=== PATIENT | male | born 1960 | race African-American/Black ===

== ENCOUNTER 2020-01-13 13:28 | Inpatient (IN) ==
--- NOTE | 2020-01-13 16:01 | Diag Imaging Result Doc PS360 ---
EXAM: CHEST-PORTABLE 01/13/2020 HISTORY: chf TECHNIQUE: AP portable at 1540 COMMENT: There is cardiomegaly. There is ill-defined parahilar opacity particularly on the right which is worse than on 12/21/2016. IMPRESSION: Cardiomegaly and pulmonary edema. Electronically signed by Galdino Christian 01/13/2020 3:59 PM
[2020-01-13 17:08] LABS: BASO# 0.05 X1000 (0.0-0.2); BASO% 0.6 % (0.0-0.8); EOS# 0.02 X1000 (0.0-0.7); EOS% 0.3 % (0.0-10.0); HEMATOCRIT 41.4 % (42.0-52.0); HEMOGLOBIN 13.6 g/dL (14.0-18.0); IMM GRAN# 0.03 X1000 (0.0-0.04); IMM GRAN% 0.4 % (0.0-0.5); LYMPH# 1.05 X1000 (1.2-3.4); LYMPH% 13.3 % (20.5-51.1); MCH 32.5 PG (27-31); MCHC 32.9 g/dL (33-37); MCV 98.8 FL (81-99); MONO# 0.87 X1000 (0.11-0.59); MPV 8.9 FL (7.4-10.4); NEUT# 5.88 X1000 (1.4-6.5); NEUT% 74.4 % (42.2-75.2); PLT 296 X1000 (130-400); RBC 4.19 XMIL (4.7-6.1); RDW 13.3 % (11.5-14.5)
[2020-01-13 17:32] LABS: AGAP 12; ALBUMIN 2.4 g/dL (3.5-5.0); ALKALINE PHOSPHATASE 138 U/L (32-122); BUN 22 mg/dL (8-22); CALCIUM 7.5 mg/dL (8.8-10.2); CHLORIDE 97 mmol/L (98-107); COSMO 263; CREATININE 1.4 mg/dL (0.7-1.2); ESTIMATED GFR > 60; GLUCOSE 76 mg/dL (70-104); GOT 52 U/L (10-34); GPT 28 U/L (10-44); POTASSIUM 3.5 mmol/L (3.5-5.1); SODIUM 130 mmol/L (136-145); TCO2 21 mmol/L (25-35); TOTAL BILIRUBIN 0.53 mg/dL (0.20-1.00); TOTAL PROTEIN 4.7 g/dL (6.3-8.3)
[2020-01-13] MEDS: LASIX IV SCH (17:52)
--- NOTE | 2020-01-13 18:16 | HISTORY AND PHYSICAL ---
PRIMARY CARE PROVIDER: Dr. Brissa Lemons. CART PUSHER: Dr. Deven Schwarz. CHIEF COMPLAINT: Transfer from [facility] for continued lower extremity edema and pneumonia. HISTORY OF PRESENT ILLNESS: Mr. Conroy is a 59-year-old -[place] male with a past medical history of systolic congestive heart failure last known EF of 15% in 2018, paroxysmal atrial fibrillation, atrial flutter, coronary artery disease, ischemic cardiomyopathy, chronic anticoagulation, hypotension, chronic hypotension, hyperlipidemia, hepatitis C with cirrhosis of the liver, chronic kidney disease, COPD, nicotine dependence, status post CABG and pacemaker ICD who was transferred over from [facility] with reported uncontrollable lower extremity edema with hypotension and continued bibasilar infiltrate with reported blood pressures 80s and 90s and they were unable to continue to diurese him and secondary to having no ICU he was need to be transferred for a higher level of care with Cardiology consult. All labs and diagnostics have been ordered. PAST MEDICAL HISTORY: Per HPI. Cardiorenal syndrome PAST SURGICAL HISTORY: CABG, pacemaker, ICD. SOCIAL HISTORY: Continued smoker, quit drinking multiple years ago. He is with 2 children. Lives in [place]. FAMILY HISTORY: Significant for heart disease. REVIEW OF SYSTEMS: Twelve-point review of systems completely negative except for those mentioned in HPI. He reports pedal and ankle edema all the time however over the last week and a half he had worsening edema going up into his legs. Currently it is up into his abdomen pitting. Denies any cardiac type chest pain. No more short of breath than his usual. No nausea, vomiting, diarrhea. He did report a cough last week as well nonproductive. MEDICATIONS: Home medications are being compiled. PHYSICAL EXAM: VITAL SIGNS: Temperature is 97.7 degrees, heart rate 94, respirations 24, blood pressure 107/64, O2 is 95% on 2 L nasal cannula. GENERAL: Mr. Conroy is a pleasant 59-year-old male who is sitting up in the bed in the ICU in no acute distress. HEENT: Atraumatic, normocephalic. PERRL. NECK: Supple. Trachea midline. CARDIOVASCULAR: Irregularly irregular. No murmurs, gallops, or rubs noted. JVD present. Significant bilateral lower extremity pitting edema from pedal up into bilateral flanks and abdomen 2 to 3+, positive JVD. ABDOMEN: Somewhat distended, positive bowel, he does have some pitting edema. EXTREMITIES: Patient moves all extremities well. SKIN: Appears to be warm, dry and intact. NEURO: No focal deficits noted. LABORATORY AND DIAGNOSTIC DATA: Pending. 1. Congestive heart failure history last known ejection fraction is 15% in 2018. Will gently diurese him. He has borderline pressures. We will consult Cardiology for their recommendations if they want start a drip. 2. Ischemic cardiomyopathy. 3. Coronary artery disease denying any chest pain. 4. Paroxysmal atrial fibrillation, atrial flutter. 5. Chronic hypotension. 6. Hyperlipidemia. 7. Hepatitis C with cirrhosis of the liver. 8. Cardiorenal syndrome. 9. Chronic kidney disease. 10. Chronic obstructive pulmonary disease. 11. Nicotine dependence. 12. Patient was on hospice back in 2017 but per his report they discharged him because he got better. 13. Hypothyroidism. 14. Further recommendation to follow physician evaluation, laboratory diagnostic and laboratory data. Dictated by NILA Gallegos for Jarrod Hardy MD cc: Brissa Lemons MD Patient transferred here with edema and pneumonia and chronic hypotension. he does have fairly impressive lower extremity edema on exam 2-3+ to the hip. lungs are fairly clear with only mild bibasilar crackles. BP on the low side but pretty stable from where he was on his previous admission. patient also with history of cirrhosis, so I'm not sure how much of his edema is related to CHF vs how much is cirrhosis. terminal manager prognosis is quite poor, but he's fairly stable currently. [facility]
--- NOTE | 2020-01-13 19:22 | Diag Imaging Result Doc PS360 ---
EXAM: CT THORAX/ABD/PELVIS W/O CON 01/13/2020 HISTORY: R/O pna abd pain TECHNIQUE: This exam was performed using automated exposure control, adjustment of mA or kV according to patient size, and/or use of iterative reconstruction technique. COMMENT: Thorax: The current study is compared with the previous examination of 01/13/2020 performed at [facility] at 0627. There are patchy coarse opacities present in the lung bases bilaterally. There are bilateral pleural effusions. This was also the case previously. There is anasarca with edema in the subcutaneous fat. The regional skeleton appears to be intact. ABDOMEN/pelvis: There is lobulation of the liver consistent with cirrhosis. The spleen contains some granulomata and there is decreased attenuation in the inferior spleen similar in appearance to the previous study. This has a CT density of 26 Hounsfield units and measures approximately 3.7 cm in diameter. There are multiple small stones layering dependently in the gallbladder. The kidneys are without evidence of hydronephrosis or mass. There is edema in the anterior pararenal space on the left which may be indicative of pancreatitis. This is somewhat more prominent than on the previous study. There is a fat-containing ventral hernia above the umbilicus. There is fluid throughout the small and large bowel. There is edema in the mesenteric fat. The aorta is not distended. There are atherosclerotic calcifications. There is fluid in the rectum. There is fluid in the inguinal canals particularly the right. The urinary bladder is not distended. The regional skeleton appears to be intact. IMPRESSION: 1. Bronchopneumonia and bilateral pleural effusions. 2. Anasarca. Mild ascites. 3. Cholelithiasis. 4. Distal pancreatitis. 5. Lucent lesion in the spleen which may be due to infarction or hematoma. 6. Enterocolitis. Electronically signed by Galdino Christian 01/13/2020 7:19 PM
[2020-01-13 19:45] LABS: URINE SOURCE CLEAN CATCH
[2020-01-13 19:54] LABS: BILIRUBIN URINE NEGATIVE (NEGATIVE); BLOOD URINE TRACE (NEGATIVE); COLOR YELLOW; GLUCOSE URINE NEGATIVE (NEGATIVE); KETONE URINE NEGATIVE (NEGATIVE); LEUKOCYTES URINE NEGATIVE (NEGATIVE); NITRITE URINE NEGATIVE (NEGATIVE); PROTEIN URINE TRACE mg/dL (NEGATIVE); SP GRAVITY URINE 1.014; TURBIDITY URINE CLEAR (CLEAR); UR EPITHELIAL CELLS <10 /HPF (<10); URINE BACTERIA NEGATIVE /HPF; URINE RBC <10 /HPF (<10); URINE WBC <10 /HPF (<10); UROBILINOGEN URINE NORMAL (NORMAL)
[2020-01-13] MEDS: ZOSYN 3.375 GM in NS 50 ML IV SCH ×2 (20:55→21:40)
[2020-01-13] MEDS: ZYVOX 600 MG/D5W 600 MG/300 ML IVPB IV SCH ×2 (20:56→21:39)
[2020-01-14] MEDS: ZOSYN 3.375 GM in NS 50 ML IV SCH ×4 (01:17→19:39)
[2020-01-14] MEDS: LASIX IV SCH ×2 (04:20→17:54)
[2020-01-14 06:30] LABS: BASO# 0.04 X1000 (0.0-0.2); BASO% 0.6 % (0.0-0.8); EOS# 0.02 X1000 (0.0-0.7); EOS% 0.3 % (0.0-10.0); HEMATOCRIT 37.4 % (42.0-52.0); HEMOGLOBIN 12.5 g/dL (14.0-18.0); IMM GRAN# 0.03 X1000 (0.0-0.04); IMM GRAN% 0.5 % (0.0-0.5); LYMPH# 0.72 X1000 (1.2-3.4); LYMPH% 11.1 % (20.5-51.1); MCH 32.5 PG (27-31); MCHC 33.4 g/dL (33-37); MCV 97.1 FL (81-99); MONO# 0.82 X1000 (0.11-0.59); MONO% 12.7 % (1.7-9.3); NEUT# 4.83 X1000 (1.4-6.5); NEUT% 74.8 % (42.2-75.2); PLT 259 X1000 (130-400); RBC 3.85 XMIL (4.7-6.1); RDW 13.2 % (11.5-14.5); WBC 6.46 X1000 (4.8-10.8)
[2020-01-14 06:59] LABS: AGAP 14; ALB/GLOB RATIO 0.8; ALKALINE PHOSPHATASE 121 U/L (32-122); BUN 20 mg/dL (8-22); CALCIUM 7.5 mg/dL (8.8-10.2); CHLORIDE 102 mmol/L (98-107); COSMO 270; CREATININE 1.2 mg/dL (0.7-1.2); ESTIMATED GFR > 60; GLUCOSE 86 mg/dL (70-104); GOT 42 U/L (10-34); GPT 25 U/L (10-44); POTASSIUM 3.7 mmol/L (3.5-5.1); SODIUM 134 mmol/L (136-145); TCO2 18 mmol/L (25-35); TOTAL BILIRUBIN 0.61 mg/dL (0.20-1.00); TOTAL PROTEIN 4.4 g/dL (6.3-8.3)
--- NOTE | 2020-01-14 07:16 | Diag Imaging Result Doc PS360 ---
EXAM: CHEST-PORTABLE 01/14/2020 HISTORY: chf TECHNIQUE: AP portable at 0537 COMMENT: There is cardiomegaly. Compared to 01/13/2020 there has been slight improvement in the opacity in the right upper lobe otherwise are has been no significant change. IMPRESSION: Cardiomegaly. Mild pulmonary edema. Improved atelectasis versus pneumonia right upper lobe. Electronically signed by Galdino Christian 01/14/2020 7:13 AM
[2020-01-14] MEDS: ZYVOX 600 MG/D5W 600 MG/300 ML IVPB IV SCH ×2 (07:59→19:38)
[2020-01-14] MEDS: NORCO-10 PO PRN (09:40)
[2020-01-14] MEDS: ELIQUIS PO SCH ×2 (10:41→20:14)
[2020-01-14] MEDS: COREG PO SCH ×2 (10:41→20:14)
[2020-01-14] MEDS: LANOXIN PO SCH (10:41)
[2020-01-14] MEDS: ASPIRIN PO SCH (10:41)
--- NOTE | 2020-01-14 14:21 | CARDIOLOGY CONSULTATION ---
DATE: 01/14/2020 HISTORY OF PRESENT ILLNESS: Mr. Conroy is a 59-year-old gentleman with a past medical history of congestive heart failure, ejection fraction of 15%, ischemic cardiomyopathy, on anticoagulation therapy, atrial fibrillation, status post AICD placement, status post CABG, comes with complaints of increasing shortness of breath. His CT scan was done which revealed bilateral pleural effusion and features suggestive of pneumonia as well. Patient has been started on antibiotics. The patient does not complain of any fevers or chills. Has mainly noticed increasing pedal edema with orthopnea. There are no palpitations. There is no syncope. REVIEW OF SYSTEMS: A 14 point review of system was done. GI system: There is no history of nausea, vomiting, diarrhea. There is no history of hematemesis or melena. Central nervous system: No focal weakness to suggest a CVA, TIA. System: There is no dysuria or hematuria. Respiratory System: There is no history of hemoptysis. Endocrine System: Stable. PAST MEDICAL HISTORY: 1. Coronary artery disease, coronary artery bypass grafting. 2. ICD placement. 3. Severe LV dysfunction, ejection fraction of 15%. Ischemic cardiomyopathy. 4. Atrial fibrillation. 5. Anticoagulation therapy. 6. Hepatitis C with cirrhosis of the liver. 7. COPD. 8. Nicotine dependence. SOCIAL HISTORY: Continues to smoke. Quit drinking many years back. He is with 2 children. Lives in [place]. FAMILY HISTORY: Significant for heart disease. ALLERGIES: He is not known to be allergic to any medication. CURRENT MEDICATIONS: Include Eliquis 5 mg p.o. b.i.d., aspirin 81 mg a day, Lipitor 10, Coreg 3.125 mg b.i.d., Lanoxin 0.125 mg a day, Lasix 60 mg IV b.i.d., levothyroxine 50, Zosyn. PHYSICAL EXAMINATION: Vital signs: Blood pressure was 94/67. Neck: Jugular venous pressure was elevated. Examination of the neck revealed no bruit. Cardiovascular: First and second heart sounds were heard. There was S3 gallop. Respiratory system: Bibasilar inspiratory crepitations with dullness on percussion. Abdomen: Soft, nontender. Bowel sounds were heard. Extremities: Examination of his extremities revealed pitting pedal edema. ASSESSMENT AND PLAN: 1. Mr. Chucho Conroy is a 59-year-old gentleman with a history of coronary artery disease, coronary artery bypass grafting, congestive heart failure, chronic systolic, AICD placement, atrial fibrillation, is admitted with orthopnea, pedal edema, is in congestive heart failure. CT scan also revealed features of pneumonia. From a cardiac standpoint, he is on Coreg. We will see how he fares well on Entresto. We will start him on that. 2. He has severe LV dysfunction. We will get an echocardiogram to reassess his cardiac and valvular function. We will also set him up to have dobutamine for inotropy for 48 hours. 3. We will check a BMP on a daily basis. In the past he has had cardiorenal syndrome. However, his BUN today was 20 with a creatinine of 1.2, sodium 134, proBNP elevated at greater than 10,000. 4. For pneumonia, continue with his antibiotic Zosyn as planned. 5. He has an AICD which will be tested and is functioning appropriately. He has atrial fibrillation for which he is on anticoagulation therapy. No bleeding diatheses. I have not made any other changes. Thank you for the consult. cc: Daniel So MD
[2020-01-14] MEDS: DOBUTAMINE 500/D5W 500 MG/250 ML IV.SOLN IV SCH (14:42)
--- NOTE | 2020-01-14 16:33 | PROGRESS NOTE ---
DATE: 01/14/2020 INTERVAL HISTORY: Patient's edema about the same. Remains afebrile. Oxygenation saturations pretty good. Blood pressure remains on the low side but stable overall. REVIEW OF SYSTEMS: Twelve point review of systems negative except as per interval history. LABS: WBC 6.4, hemoglobin 12.5, hematocrit 37.4, platelets 259,000. Sodium 134, potassium 3.7, BUN 20, creatinine 1.2. BNP 8500. IMAGING: Chest x-ray with cardiomegaly, mild pulmonary edema and improving right upper lobe pneumonia. CT chest, abdomen, pelvis from yesterday afternoon showing bronchopneumonia and bilateral pleural effusions as well as mild ascites and lesion in the spleen which is likely infarction versus hematoma. VITALS: T-max 98.1 degrees, pulse 80, respirations 22, blood pressure 80/61, O2 saturation 93% on 2 L by nasal cannula next. PHYSICAL EXAMINATION: General: No acute distress. Vitals as above. HEENT: Normocephalic, atraumatic. Some JVD noted. Cardiovascular: Regular rate and rhythm currently. Pulmonary: Bibasilar rales noted otherwise pretty clear. Abdomen: Soft, nontender, nondistended. Bowel sounds positive. Extremities: Peripheral pulses intact, 2+ lower extremity edema all the way up to the hip. Neurologic: Cranial nerves grossly intact. No focal deficits identified . Psychiatric: Normal mood and affect. Awake, alert, oriented x3. ASSESSMENT AND PLAN: 1. Acute on chronic systolic congestive heart failure last known ejection fraction 15%. Patient's respiratory status pretty good but his swelling is not really significantly improved. He is on current Lasix 60 q.12 and digoxin. Cardiology following and planning on starting dobutamine for a couple days to see if that helps improve his edema. I am not entirely certain how much of his swelling is from heart failure and how much is from his cirrhosis but patient states it came on fairly suddenly other than his feet which stay swollen so may very well be decompensation his heart failure. The patient's Coreg restarted and he is being started on Entresto by Cardiology as well. Will treat his other issues as below and see how he does. 2. Pneumonia. Initial chest x-ray did not really show much but CT was suggestive of some pneumonia so he was started on Zosyn and Zyvox which we will continue for now. Oxygen requirements are pretty minimal so he is doing okay from that standpoint. 3. Paroxysmal atrial fibrillation normal sinus at the time of my exam but will continue Eliquis, Coreg and digoxin. 4. History of hepatitis C and cirrhosis. Likely contributing to his edema. Bilirubin is within normal limits. No sign hepatic encephalopathy. I suspect his cirrhosis is mild to moderate. 5. Chronic obstructive pulmonary disease. No wheezing or significantly decreased air entry to suggest exacerbation. Continue to monitor. 6. Chronic hypotension. Looking back at previous hospitalizations, his blood pressure appears to be pretty much what it has been in the past. Will monitor and adjust as needed. 7. Chronic hyponatremia likely related to heart failure and cirrhosis, stable to slightly improved today. Monitor labs. 8. Chronic kidney disease 3, creatinine stable. Tolerating diuresis so far. 9. Hypothyroidism. Continue home Synthroid. 10. Chronic pain. Continue home [place]. [facility]
--- NOTE | 2020-01-14 17:14 | ECHO REPORT ---
ORDER DATE: 01/13/2020 INTERPRETING PHYSICIAN: Dr. Daniel So. ECHOCARDIOGRAPHIC MEASUREMENTS: 1. Interventricular septum: 0.7 cm. 2. Left ventricular posterior wall: 0.7 cm. 3. Left ventricular diastolic diameter: 7.0 cm. 4. Left atrium: 5.1 cm. 5. Aorta: 3.3 cm. 6. Right ventricle: 5.6 cm. SUMMARY OF THE 2-DIMENSIONAL IMAGIN. Tricuspid valve was normal. 2. Aortic valve leaflets were trileaflet. 3. There is moderate mitral annular calcification. 4. Mitral valve leaflets are normal. 5. Pacing leads are noted in the right chamber. 6. Right ventricle was dilated with reduced right ventricular systolic function. 7. There is severe biatrial enlargement. 8. There is severe eccentric tricuspid regurgitation. 9. Peak velocity across the tricuspid valve was 3.7 meters per second. 10. Pulmonary artery systolic pressure of 66 mmHg. 11. There is mild mitral regurgitation. 12. Atrial fibrillation was noted. 13. Left ventricle is severely dilated with severely reduced systolic function. 14. Estimated ejection fraction 10 to 15%. 15. There is no pericardial effusion or obvious intracardiac mass or thrombus seen. 16. There is mild mitral regurgitation. cc: Daniel So MD
[2020-01-14] MEDS: ZOFRAN IV PRN (20:14)
[2020-01-14] MEDS: ENTRESTO 24 MG-26 MG TABLET PO SCH (20:15)
[2020-01-15] MEDS: ZOSYN 3.375 GM in NS 50 ML IV SCH ×4 (01:38→20:07)
[2020-01-15] MEDS: LASIX IV SCH ×2 (05:49→16:47)
[2020-01-15 06:59] LABS: BASO# 0.02 X1000 (0.0-0.2); BASO% 0.4 % (0.0-0.8); EOS# 0.04 X1000 (0.0-0.7); EOS% 0.8 % (0.0-10.0); HEMATOCRIT 35.9 % (42.0-52.0); HEMOGLOBIN 11.6 g/dL (14.0-18.0); LYMPH# 0.89 X1000 (1.2-3.4); LYMPH% 17.8 % (20.5-51.1); MCHC 32.3 g/dL (33-37); MCV 98.9 FL (81-99); MONO# 0.65 X1000 (0.11-0.59); NEUT# 3.41 X1000 (1.4-6.5); PLT 217 X1000 (130-400); RBC 3.63 XMIL (4.7-6.1); RDW 13.4 % (11.5-14.5); WBC 5.01 X1000 (4.8-10.8)
[2020-01-15 07:04] LABS: AGAP 13; BUN 18 mg/dL (8-22); CALCIUM 7.4 mg/dL (8.8-10.2); CHLORIDE 101 mmol/L (98-107); COSMO 268; CREATININE 1.4 mg/dL (0.7-1.2); ESTIMATED GFR > 60; GLUCOSE 86 mg/dL (70-104); MAGNESIUM 1.5 mg/dL (1.5-2.7); POTASSIUM 3.1 mmol/L (3.5-5.1); SODIUM 133 mmol/L (136-145); TCO2 19 mmol/L (25-35)
[2020-01-15] MEDS: LANOXIN PO SCH ×2 (07:33→08:31)
[2020-01-15] MEDS: COREG PO SCH ×3 (07:33→20:10)
[2020-01-15] MEDS: ENTRESTO 24 MG-26 MG TABLET PO SCH ×3 (07:34→20:10)
[2020-01-15] MEDS: ASPIRIN PO SCH ×2 (07:34→08:30)
[2020-01-15] MEDS: ZYVOX 600 MG/D5W 600 MG/300 ML IVPB IV SCH ×2 (07:34→20:07)
[2020-01-15] MEDS: ELIQUIS PO SCH ×3 (07:34→20:35)
[2020-01-15] MEDS: NORCO-10 PO PRN (07:38)
[2020-01-15] MEDS: LIPITOR PO SCH (08:30)
[2020-01-15] MEDS: SYNTHROID PO SCH (08:31)
[2020-01-15] MEDS ORDERED: KLOR-CON PO ONE (10:23)
[2020-01-15] MEDS ORDERED: ALDACTONE PO ONE (10:32)
--- NOTE | 2020-01-15 10:57 | PROGRESS NOTE ---
DATE: 01/15/2020 SUBJECTIVE: I have seen and examined Mr. Conroy today. Mr. Conroy refers to be doing well. He said his breathing has improved but he remains remarkably edematous, especially in the lower extremities. OBJECTIVE: Vital Signs: Current vitals are blood pressure 93/77, pulse of 77, respirations 20, temperature 97.7 degrees. The patient is saturating 99% on 4 L. General: Mr. Conroy is a 59- year-old gentleman. He is in bed, does not seem to be in any cardiopulmonary distress. HEENT: Mucosa is pink and moist. Anicteric. Acyanotic. Neck: Supple. Positive for JVD. Chest: Air entry is bilaterally reduced. A few crackles in the posterior lung maier. Cardiovascular: Regular rate and rhythm. Abdomen: Soft. It is distended. There is a paraumbilical hernia noted. There is edema on the lateral aspect of the abdominal wall. Extremities: About 4+ pedal edema. SURGICAL ASSISTANT: Patient is awake, alert, oriented. There is no focal deficit. I'S AND O'S: Urine output was 2125. He is currently negative balance of 812. LABORATORY DATA: WBC of 5.01, hemoglobin of 11.6, platelet count of 217,000. Chemistry is also reviewed. Potassium of 3.1. Rest of chemistry is unremarkable. Creatinine is 1.4. IMAGING STUDIES: A chest x-ray yesterday did show cardiomegaly, pulmonary edema, improved atelectasis versus pneumonia in the right upper lobe. CURRENT MEDICATIONS: Have all been reviewed, no changes. ASSESSMENT: 1. Anasarca secondary to congestive heart failure exacerbation. The patient is on diuretic therapy. 2. Advanced systolic heart failure. The patient is on Entresto, Coreg, diuretics, and digoxin. 3. Severe ischemic cardiomyopathy. The patient is status post coronary artery bypass graft and AICD. 4. Biventricular failure. Ejection fraction of 10 to 15 percent of the left ventricle. 5. Cardiogenic shock. The patient continues to be on inotrope (dobutamine). Cardiology is on board. 6. Bilateral multifocal pneumonia. Patient is on Zosyn and Zyvox. Today is day 2 on antimicrobials. 7. Hypokalemia. We will continue to replace. 8. Chronic kidney disease, stage III A to B. In general, I think Mr. Conroy is relatively stable. He remains edematous. He continues to be on loop diuretic. We will add spironolactone to enhance the loop diuretic and also for the poor ejection fraction. cc: Kaveh Lozano MD
[2020-01-15] MEDS: LEVOPHED 8 MG in D5 1/2 NS 250 ML IV SCH ×2 (15:31→23:54)
[2020-01-15] MEDS: ZOFRAN IV PRN (18:14)
[2020-01-16] MEDS: DOBUTAMINE 500/D5W 500 MG/250 ML IV.SOLN IV SCH ×2 (01:13→13:10)
[2020-01-16] MEDS: ZOSYN 3.375 GM in NS 50 ML IV SCH ×2 (03:22→07:44)
[2020-01-16] MEDS: LASIX IV SCH ×2 (05:06→20:30)
[2020-01-16 06:24] LABS: BASO# 0.04 X1000 (0.0-0.2); BASO% 0.5 % (0.0-0.8); EOS# 0.04 X1000 (0.0-0.7); EOS% 0.5 % (0.0-10.0); HEMATOCRIT 42.4 % (42.0-52.0); HEMOGLOBIN 14.1 g/dL (14.0-18.0); IMM GRAN# 0.03 X1000 (0.0-0.04); IMM GRAN% 0.4 % (0.0-0.5); LYMPH# 1.39 X1000 (1.2-3.4); LYMPH% 17.7 % (20.5-51.1); MCH 32.6 PG (27-31); MCHC 33.3 g/dL (33-37); MCV 97.9 FL (81-99); MONO# 1.18 X1000 (0.11-0.59); MONO% 15.1 % (1.7-9.3); MPV 8.8 FL (7.4-10.4); NEUT# 5.16 X1000 (1.4-6.5); NEUT% 65.8 % (42.2-75.2); PLT 278 X1000 (130-400); RBC 4.33 XMIL (4.7-6.1); RDW 13.1 % (11.5-14.5); WBC 7.84 X1000 (4.8-10.8)
[2020-01-16 06:48] LABS: AGAP 11; BUN 15 mg/dL (8-22); CALCIUM 7.6 mg/dL (8.8-10.2); CHLORIDE 96 mmol/L (98-107); COSMO 264; CREATININE 1.2 mg/dL (0.7-1.2); ESTIMATED GFR > 60; GLUCOSE 133 mg/dL (70-104); POTASSIUM 3.7 mmol/L (3.5-5.1); SODIUM 130 mmol/L (136-145); TCO2 23 mmol/L (25-35)
[2020-01-16] MEDS: ZYVOX 600 MG/D5W 600 MG/300 ML IVPB IV SCH ×2 (07:44→19:30)
[2020-01-16] MEDS: SYNTHROID PO SCH (08:10)
[2020-01-16] MEDS: LANOXIN PO SCH (08:10)
[2020-01-16] MEDS: LEVOPHED 8 MG in D5 1/2 NS 250 ML IV SCH ×3 (08:10→21:27)
[2020-01-16] MEDS: LIPITOR PO SCH (08:10)
[2020-01-16] MEDS: ENTRESTO 24 MG-26 MG TABLET PO SCH (08:11)
[2020-01-16] MEDS: ALDACTONE PO SCH (08:11)
[2020-01-16] MEDS: ASPIRIN PO SCH (08:11)
[2020-01-16] MEDS: ELIQUIS PO SCH ×2 (08:11→20:30)
[2020-01-16] MEDS: COREG PO SCH ×2 (08:11→20:30)
[2020-01-16] MEDS ORDERED: LASIX IV SCH (09:00)
[2020-01-16] MEDS: COLCRYS PO SCH (12:16)
[2020-01-16] MEDS: BIDIL PO SCH ×2 (13:10→17:05)
--- NOTE | 2020-01-16 19:20 | PROGRESS NOTE ---
DATE: 01/16/2020 This is a patient of Dr. 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 Deven Schwarz. He was transferred from [facility] to continue treatment for lower extremity edema and pneumonia. This is a 59-year-old male with past medical history of systolic congestive heart failure, known ejection fraction 15% in 2018, paroxysmal atrial fib, atrial flutter, coronary artery disease, ischemic cardiomyopathy, chronic anticoagulation, hypertension, chronic hypertension, hyperlipidemia, hepatitis C with cirrhosis of the liver, chronic kidney disease, COPD, nicotine dependence, status post CABG and pacemaker ICD placement. He was transferred from [facility] with reported uncontrolled lower extremity edema, hypotension and continued bibasilar infiltrate. Reported blood pressures in the 80s to 90s systolic, unable to continue to diurese him so transferred here to our ICU unit. ADMISSION DIAGNOSES: 1. Congestive heart failure. Last known ejection fraction 15% in 2018. The plan was to diurese and cardiology involved. 2. Ischemic cardiomyopathy. 3. Coronary artery disease. No chest pain. No sign of active ischemia at this time. 4. Paroxysmal atrial fibrillation and flutter. 5. Chronic hypertension. 6. Hyperlipidemia. 7. Hepatitis C with cirrhosis of the liver. 8. Cardiorenal syndrome. 9. Chronic kidney disease. 10. Chronic obstructive pulmonary disease. 11. Nicotine dependence. 12. Patient was on hospice back in 2017. Reportedly was discharged because he got better. 13. Hypothyroidism. 14. Continue to encourage good nutrition. OBJECTIVE: Vital signs: Today, afebrile temperature 97 degrees, pulse 80, respirations 18, blood pressure 89/58. HEENT: Pupils are equal and round. Lungs: Clear in all lung maier. Cardiovascular exam: Regular rhythm and rate without murmur or S3. ASSESSMENT AND PLAN: 1. Anasarca secondary to congestive heart failure exacerbation. On exam, his lower extremities did have 3 to 4+ pitting edema. 2. Advanced systolic heart failure. The patient is on Entresto, Coreg, diuretic and digoxin. 3. Severe ischemic cardiomyopathy. Patient is status post coronary artery bypass graft, and an AICD is placed. 4. Biventricular failure. Ejection fraction is 10% to 15% in the left ventricle. 5. Cardiogenic shock. The patient continues to be on inotrope dobutamine. Cardiology is on board. 6. Bilateral multifocal pneumonia. The patient is on Zosyn and Zyvox. This is day #3. 7. Hypokalemia. Continue to replace. Follow his magnesium as well. 8. Chronic kidney disease stage 3A to B. REVIEW OF HIS ORDERS: The patient is on Eliquis 5 mg b.i.d., aspirin 81 mg a day, Lipitor 10 mg a day, Coreg 3.125 mg b.i.d., Colcrys 0.6 mg daily, Lanoxin 125 mcg p.o. daily, dobutamine IV. He has 500 mg in 250 mL and set rate is 3 mcg/kg per minute, Lasix 40 mg IV twice a day, hydrocodone 10 mg p.o. t.i.d. p.r.n. pain, isosorbide dinitrate, hydralazine combination 1 t.i.d., and Synthroid 50 mcg daily, Aldactone 25 mg a day, linezolid 600 mg IV q.12, spironolactone 12.5 mg they gave 1 time on the night. LABORATORY DATA: Today, white count 7840, hematocrit 42, platelet count is 278,000, sodium 130, potassium 3.7, chloride 96, BUN 15, creatinine 1.2. Yesterday, creatinine was 1.4. cc: Jamarcus Robbins MD
[2020-01-17] MEDS: LEVOPHED 8 MG in D5 1/2 NS 250 ML IV SCH ×4 (03:49→21:12)
[2020-01-17 05:52] LABS: BASO# 0.02 X1000 (0.0-0.2); BASO% 0.3 % (0.0-0.8); EOS# 0.05 X1000 (0.0-0.7); EOS% 0.7 % (0.0-10.0); HEMATOCRIT 39.5 % (42.0-52.0); HEMOGLOBIN 12.9 g/dL (14.0-18.0); IMM GRAN# 0.02 X1000 (0.0-0.04); IMM GRAN% 0.3 % (0.0-0.5); LYMPH# 1.52 X1000 (1.2-3.4); LYMPH% 21.8 % (20.5-51.1); MCH 31.9 PG (27-31); MCHC 32.7 g/dL (33-37); MCV 97.8 FL (81-99); MONO# 0.99 X1000 (0.11-0.59); MONO% 14.2 % (1.7-9.3); MPV 8.8 FL (7.4-10.4); NEUT# 4.36 X1000 (1.4-6.5); NEUT% 62.7 % (42.2-75.2); PLT 262 X1000 (130-400); RBC 4.04 XMIL (4.7-6.1); RDW 13.1 % (11.5-14.5); WBC 6.96 X1000 (4.8-10.8)
[2020-01-17 06:28] LABS: AGAP 11; BUN 15 mg/dL (8-22); CALCIUM 7.3 mg/dL (8.8-10.2); CHLORIDE 99 mmol/L (98-107); COSMO 271; CREATININE 1.1 mg/dL (0.7-1.2); ESTIMATED GFR > 60; GLUCOSE 136 mg/dL (70-104); POTASSIUM 3.5 mmol/L (3.5-5.1); SODIUM 134 mmol/L (136-145); TCO2 24 mmol/L (25-35)
--- NOTE | 2020-01-17 07:17 | Diag Imaging Result Doc PS360 ---
EXAM: CHEST-1 VIEW HISTORY: chf TECHNIQUE: Single view COMPARISON: 01/14/2020 FINDINGS: The lungs are well expanded. Cardiomegaly remains. There are sternal wires and a left-sided pacemaker. Mild central vascular prominence. Perihilar infiltrates which are slightly more pronounced. Tiny effusions. IMPRESSION: Mild interval worsening Electronically signed by Satnam Hardwick 01/17/2020 7:14 AM
[2020-01-17] MEDS: ALDACTONE PO SCH (08:32)
[2020-01-17] MEDS: ZYVOX 600 MG/D5W 600 MG/300 ML IVPB IV SCH ×2 (08:32→19:22)
[2020-01-17] MEDS: COLCRYS PO SCH (08:32)
[2020-01-17] MEDS: LASIX IV SCH ×2 (08:32→20:05)
[2020-01-17] MEDS: ASPIRIN PO SCH (08:32)
[2020-01-17] MEDS: ELIQUIS PO SCH ×2 (08:32→20:05)
[2020-01-17] MEDS: LANOXIN PO SCH (08:32)
[2020-01-17] MEDS: LIPITOR PO SCH (08:32)
[2020-01-17] MEDS: SYNTHROID PO SCH (08:32)
[2020-01-17] MEDS: BIDIL PO SCH ×3 (08:32→17:06)
[2020-01-17] MEDS: COREG PO SCH ×2 (08:32→20:05)
--- NOTE | 2020-01-17 15:21 | PROGRESS NOTE ---
DATE: 01/17/2020 SUBJECTIVE: Mr. Conroy had a little more trouble breathing, a little more chest pressure this morning. Blood pressure is hovering between 79 and 96 systolic. OBJECTIVE: Vital Signs: Temperature is 97.8 degrees, pulse 87, respirations 17, blood pressure 79/47. HEENT: Pupils are equal. Lungs: Clear in all lung maier. Cardiovascular: Anterolateral cardiovascular regular rate without murmur or S3. Urine output is 800 mL. DIAGNOSTIC DATA: Chest x-ray from this morning mild interval worsening. Lungs are well expanded. Cardiomegaly remains. There are sternal wires and left-sided pacemaker, mild central vascular prominence. Perihilar infiltrates which are sightly more pronounced. ASSESSMENT AND PLAN: 1. Anasarca secondary congestive heart failure exacerbation. His pitting edema seems to be less. He is diuresing a little bit. Radiographically, no improvement. 2. Advanced systolic heart failure. He is on Entresto, Coreg, diuretic, and digoxin. 3. Severe ischemic cardiomyopathy. The patient is status post coronary bypass graft and AICD has been placed. 4. Biventricular failure. Ejection fraction left ventricle is 10 to 15 percent. 5. Cardiogenic shock. Continue inotrope dobutamine. Cardiology following. Continue trying to diurese. 6. Bilateral multifocal pneumonia. He is on Zosyn and Zyvox. I think predominantly this is pulmonary venous hypertension as his problem. 7. Hypokalemia. Continue to replace as necessary. 8. Chronic kidney disease stage 3A. REVIEW OF HIS ORDERS: He is on Eliquis 5 mg b.i.d. aspirin 81 mg a day, Lipitor 10 mg a day, Coreg 3.125 mg b.i.d., Colcrys 0.6 mg a day, digoxin 125 mcg p.o. daily, dobutamine. He is getting dobutamine drip, Lasix 40 mg IV b.i.d., hydrocodone 10 mg p.o. t.i.d., isosorbide dinitrate and hydralazine takes 1 tablet t.i.d. and Synthroid 50 mcg p.o. daily, spironolactone 25 mg a day and he is on linezolid 600 mg IV. cc: Jamarcus Robbins MD
[2020-01-18] MEDS: DOBUTAMINE 500/D5W 500 MG/250 ML IV.SOLN IV SCH (02:05)
[2020-01-18] MEDS: LEVOPHED 8 MG in D5 1/2 NS 250 ML IV SCH ×4 (02:37→23:53)
--- NOTE | 2020-01-18 08:02 | EKG Report ---
Test Performed on : 01/17/2020 10:12:42 AM Test Reason : NO EKG ORDER FOR MUSE Blood Pressure : / mmHG Vent. Rate : 084 BPM Atrial Rate : 102 BPM P-R Int : 000 ms QRS Dur : 092 ms QT Int : 400 ms P-R-T Axes : 000 085 -53 degrees QTc Int : 472 ms Atrial fibrillation. with frequent ventricular-paced complexes and with premature ventricular or aber rantly conducted complexes. Minimal voltage criteria for LVH, may be normal variant Nonspecific ST and T wave abnormality Prolonged QT Abnormal ECG When compared with ECG of 15-DEC-2016 12:36, Electronic ventricular pacemaker has replaced Sinus rhythm. Vent. rate has decreased BY 43 BPM Confirmed by Abhishek Crum MD ([id number]) on 01/18/2020 9:18:15 PM
[2020-01-18] MEDS: LANOXIN PO SCH (08:14)
[2020-01-18] MEDS: COLCRYS PO SCH ×2 (08:14→20:00)
[2020-01-18] MEDS: ZYVOX 600 MG/D5W 600 MG/300 ML IVPB IV SCH ×2 (08:14→19:31)
[2020-01-18] MEDS: ALDACTONE PO SCH (08:14)
[2020-01-18] MEDS: LASIX IV SCH (08:14)
[2020-01-18] MEDS: LIPITOR PO SCH (08:14)
[2020-01-18] MEDS: ELIQUIS PO SCH ×2 (08:15→20:01)
[2020-01-18] MEDS: ASPIRIN PO SCH (08:15)
[2020-01-18] MEDS: SYNTHROID PO SCH (08:15)
[2020-01-18] MEDS: COREG PO SCH ×2 (08:15→20:01)
[2020-01-18] MEDS: BIDIL PO SCH ×2 (08:16→20:00)
[2020-01-18] MEDS: NORCO-10 PO PRN ×2 (09:02→15:19)
[2020-01-18] MEDS ORDERED: NON-FORMULARY BULK MED TOP PRN (09:45)
[2020-01-18] MEDS ORDERED: MISC. PHARMACY COMMUNICATION SCH (09:45)
--- NOTE | 2020-01-18 10:28 | PROGRESS NOTE ---
DATE: 01/18/2020 SUBJECTIVE: Mr. Conroy is breathing better, a little more comfortable. Apparently, when he was standing up, he felt a strain on his right knee. The aide kept him from falling, but he has pain over the right patella, right kneecap today and that is his main complaint. OBJECTIVE: Vital signs: Temperature 97.1 degrees, remains afebrile, pulse 104, respirations 20, blood pressure 106/70. HEENT: Pupils are equal and round. Lungs: Clear in all lung maier. Cardiovascular: Regular rate without murmur or S3. URINE OUTPUT: 3500 mL. ASSESSMENT AND PLAN: 1. Anasarca secondary to congestive heart failure exacerbation. His pitting edema seems to be less and we are diuresing slowly. 2. Advanced systolic heart failure. He is on Entresto, Coreg, diuretic and digoxin. 3. Severe ischemic cardiomyopathy, status post coronary artery bypass graft. AICD has been placed. 4. Biventricular failure. Ejection fraction of left ventricle estimated to be 10 to 15 percent. 5. Cardiogenic shock when he came. He is on dobutamine drip. 6. Bilateral multifocal pneumonia on Zosyn and Zyvox. Pneumonia seems to be improving. 7. Hypokalemia. We will supplement and replace as necessary. 8. Chronic kidney disease stage IIIA. 9. Irritation in his knee cap. We will see if we can find some topical patches that will help. I am going to check a uric acid level and he is already on colchicine. I may go up on the colchicine to 0.6 mg p.o. twice a day. cc: Jamarcus Robbins MD
[2020-01-18] MEDS: PRIMACOR 20 MG/D5W 100 ML 20 MG/100 ML IVPB IV SCH ×2 (11:36→21:36)
[2020-01-19] MEDS: NORCO-10 PO PRN ×2 (04:32→18:33)
[2020-01-19 06:07] LABS: AGAP 11; BUN 8 mg/dL (8-22); CALCIUM 7.6 mg/dL (8.8-10.2); CHLORIDE 99 mmol/L (98-107); COSMO 271; CREATININE 0.8 mg/dL (0.7-1.2); ESTIMATED GFR > 60; GLUCOSE 117 mg/dL (70-104); MAGNESIUM 1.4 mg/dL (1.5-2.7); POTASSIUM 3.4 mmol/L (3.5-5.1); SODIUM 136 mmol/L (136-145); TCO2 26 mmol/L (25-35); URIC ACID 7.1 mg/dL (3.4-7.0)
[2020-01-19] MEDS: PRIMACOR 20 MG/D5W 100 ML 20 MG/100 ML IVPB IV SCH ×2 (08:17→19:47)
[2020-01-19] MEDS: ZYVOX 600 MG/D5W 600 MG/300 ML IVPB IV SCH ×2 (08:17→19:48)
[2020-01-19] MEDS: SYNTHROID PO SCH (08:29)
[2020-01-19] MEDS: ASPIRIN PO SCH (08:29)
[2020-01-19] MEDS: COLCRYS PO SCH ×2 (08:29→21:45)
[2020-01-19] MEDS: COREG PO SCH ×2 (08:29→21:45)
[2020-01-19] MEDS: LIPITOR PO SCH (08:29)
[2020-01-19] MEDS: LANOXIN PO SCH (08:29)
[2020-01-19] MEDS: ELIQUIS PO SCH ×2 (08:29→21:46)
[2020-01-19] MEDS: ALDACTONE PO SCH (08:30)
[2020-01-19] MEDS: LASIX PO SCH (08:30)
[2020-01-19] MEDS: BIDIL PO SCH ×2 (08:30→22:47)
[2020-01-19] MEDS: MORPHINE IV PRN (12:36)
[2020-01-19] MEDS: SOLU-MEDROL IV SCH ×2 (12:37→19:48)
[2020-01-19] MEDS: LEVOPHED 8 MG in D5 1/2 NS 250 ML IV SCH (13:48)
--- NOTE | 2020-01-19 14:34 | Diag Imaging Result Doc PS360 ---
EXAM: KNEE 1-2 VIEWS-RIGHT 01/19/2020 HISTORY: painful swelling R knee. TECHNIQUE: Right knee three COMMENT: There is no evidence of fracture or dislocation. There is an effusion in the suprapatellar bursa. There is generalized subcutaneous edema. IMPRESSION: Edema and effusion. No acute bony abnormality. Electronically signed by Galdino Christian 01/19/2020 2:31 PM
--- NOTE | 2020-01-19 14:57 | PROGRESS NOTE ---
DATE: 01/19/2020 SUBJECTIVE: Mr. Conroy is breathing better. His right knee is what is giving him a lot of pain. I think I may try some Solu-Medrol. I did go up on his colchicine. I think he strained that right knee, but he does have a history of gout, and there is some general inflammation on that knee. Remains afebrile. OBJECTIVE: Vital Signs: Temperature 98.1 degrees, pulse 88, respirations 19, blood pressure 118/63. HEENT: Pupils are equal and round. Lungs: Clear in all lung maier. Cardiovascular: Regular rhythm and rate without murmur or S3. Abdomen: Soft. Skin: Warm and dry. Urine output is 2600 mL. ASSESSMENT AND PLAN: 1. Anasarca secondary to congestive heart failure exacerbation. The edema seems to be diminishing. He has continued to diurese. He has hypotension which makes it difficult. He is on Entresto, Coreg, diuretic and digoxin. He has severe ischemic cardiomyopathy, status post coronary artery bypass grafting. He has an AICD placed. He has biventricular failure, ejection fraction estimated to be 10% to 15% in the left ventricle. Cardiogenic shock when he presented. He was on dobutamine and now I think his dobutamine has been stopped and he is on norepinephrine. 2. Hypothyroidism. He continues Synthroid supplement. 3. Hypercholesterolemia, aware. 4. His right knee is very tender, so I will probably would get an x-ray of that right knee tomorrow. We will get another chest x-ray as well and just make sure there is no patella injury. cc: Jamarcus Robbins MD
[2020-01-20] MEDS: SOLU-MEDROL IV SCH ×2 (04:27→17:18)
[2020-01-20] MEDS: MORPHINE IV PRN (05:28)
[2020-01-20 06:29] LABS: EOS# 0.17 X1000 (0.0-0.7); EOS% 4.2 % (0.0-10.0); HEMATOCRIT 32.9 % (42.0-52.0); HEMOGLOBIN 10.9 g/dL (14.0-18.0); LYMPH# 0.48 X1000 (1.2-3.4); LYMPH% 11.7 % (20.5-51.1); MCH 32.2 PG (27-31); MCHC 33.1 g/dL (33-37); MCV 97.3 FL (81-99); MONO# 0.11 X1000 (0.11-0.59); MONO% 2.7 % (1.7-9.3); NEUT# 3.33 X1000 (1.4-6.5); NEUT% 81.4 % (42.2-75.2); PLT 128 X1000 (130-400); RBC 3.38 XMIL (4.7-6.1); RDW 12.8 % (11.5-14.5); WBC 4.09 X1000 (4.8-10.8)
[2020-01-20] MEDS: PRIMACOR 20 MG/D5W 100 ML 20 MG/100 ML IVPB IV SCH ×2 (06:45→18:07)
[2020-01-20 07:00] LABS: AGAP 11; ALB/GLOB RATIO 0.7; ALBUMIN 2.3 g/dL (3.5-5.0); ALKALINE PHOSPHATASE 183 U/L (32-122); BUN 15 mg/dL (8-22); CALCIUM 8.3 mg/dL (8.8-10.2); CHLORIDE 96 mmol/L (98-107); COSMO 266; CREATININE 1.2 mg/dL (0.7-1.2); ESTIMATED GFR > 60; GLUCOSE 139 mg/dL (70-104); GOT 33 U/L (10-34); GPT 23 U/L (10-44); MAGNESIUM 1.5 mg/dL (1.5-2.7); POTASSIUM 3.7 mmol/L (3.5-5.1); SODIUM 131 mmol/L (136-145); TCO2 24 mmol/L (25-35); TOTAL BILIRUBIN 1.04 mg/dL (0.20-1.00); TOTAL PROTEIN 5.6 g/dL (6.3-8.3)
[2020-01-20] MEDS: COLCRYS PO SCH ×2 (08:30→20:01)
[2020-01-20] MEDS: ZYVOX 600 MG/D5W 600 MG/300 ML IVPB IV SCH (08:30)
[2020-01-20] MEDS: LASIX PO SCH (08:30)
[2020-01-20] MEDS: LIPITOR PO SCH (08:31)
[2020-01-20] MEDS: SYNTHROID PO SCH (08:31)
[2020-01-20] MEDS: LANOXIN PO SCH (08:31)
[2020-01-20] MEDS: ASPIRIN PO SCH (08:31)
[2020-01-20] MEDS: COREG PO SCH ×2 (08:31→20:01)
[2020-01-20] MEDS: ELIQUIS PO SCH ×2 (08:32→20:01)
[2020-01-20] MEDS: ALDACTONE PO SCH ×2 (08:32→21:40)
[2020-01-20] MEDS: BIDIL PO SCH ×2 (08:46→20:01)
--- NOTE | 2020-01-20 09:13 | Diag Imaging Result Doc PS360 ---
EXAM: CHEST-PORTABLE INDICATION: chf TECHNIQUE: One view COMPARISON: 01/17/2020 FINDINGS: Interstitial thickening most compatible with pulmonary edema is stable to marginally improved. No new consolidation is appreciated. There is stable cardiomegaly. IMPRESSION: Stable to marginal improvement of pulmonary edema. Electronically signed by Salty Moncada 01/20/2020 9:11 AM
--- NOTE | 2020-01-20 09:56 | PROGRESS NOTE ---
DATE: 01/20/2020 SUBJECTIVE: Mr. Conroy's knee is feeling much better. His breathing is comfortable. OBJECTIVE: Vital Signs: Temperature 97.8 degrees, pulse 109, respirations 20, blood pressure has been 86 to mid 90s systolic. Lungs: Clear anterolateral. Cardiovascular exam: Regular rhythm and rate. I do not appreciate a murmur or S3. He does have distended neck veins, both sides. Abdomen: Soft. Extremities: He has 2+ to 3+ pitting edema still from ankle to mid yuen. His right knee is less inflamed. LABORATORY DATA: Looking at his lab from today, white count 4090, hematocrit is 32, hemoglobin is 10, platelet count 128,000. Sodium 139, potassium 3.7, chloride 96. BUN is 15, creatinine 1.2. IMAGING STUDIES: Chest x-ray: Stable to marginal improvement of pulmonary edema. ASSESSMENT AND PLAN: 1. Anasarca secondary to congestive heart failure exacerbation. Edema seems to be slowly diminishing. He is on norepinephrine. He has an automatic implantable cardioverter defibrillator placement. He has biventricular systolic dysfunction, but his left ventricular ejection fraction has been estimated to 10 to 15 percent, so continue to try and diurese. He is on Entresto, Coreg, diuretic and digoxin. 2. Hypothyroidism. Appears to be euthyroid. He is to continue thyroid supplement. 3. Hypercholesterolemia. Aware. 4. Right knee was very tender, and he does have a history of gout, so I put him on some Solu- Medrol. He said he has gotten quite a bit of relief. REVIEW OF HIS ORDERS: He is on Eliquis 5 mg twice a day, aspirin 81 mg a day, Lipitor 10 mg a day, Coreg 3.125 mg b.i.d., colchicine 0.6 mg b.i.d., digoxin 125 mcg daily, Lasix 40 mg a day, hydrocodone 10 mg p.o. t.i.d. p.r.n., isosorbide, hydralazine 1 twice a day, Synthroid 50 mcg daily, methylprednisone 40 mg IV q. 8 hours. I will cut that down to 20 mg IV maybe q. 12 hours. He is getting Milrinone at 20 mg in 100 mL on a drip. He is on spironolactone 25 mg a day, and getting linezolid 600 mg IV q. 12 hours. I think we can probably stop the linezolid. Blood cultures have been negative. cc: Jamarcus Robbins MD
[2020-01-20] MEDS ORDERED: MAGNESIUM SULFATE 4 GM/S.W.I. 4 GM/100 ML IVPB IV ONE (11:52)
[2020-01-20] MEDS ORDERED: ALBUMIN 25% IV ONE (12:23)
[2020-01-20] MEDS: LASIX IV SCH (13:54)
[2020-01-20] MEDS: NORCO-10 PO PRN (19:55)
[2020-01-21] MEDS: LEVOPHED 8 MG in D5 1/2 NS 250 ML IV SCH ×2 (05:31→21:46)
[2020-01-21] MEDS: SOLU-MEDROL IV SCH ×2 (05:32→17:02)
[2020-01-21] MEDS: PRIMACOR 20 MG/D5W 100 ML 20 MG/100 ML IVPB IV SCH ×2 (05:32→17:02)
--- NOTE | 2020-01-21 07:50 | CARDIOLOGY PROGRESS NOTE ---
DATE: 01/20/2020 CHIEF COMPLAINT: Shortness of breath, swelling. SUBJECTIVE: Mr. Conroy remains swollen, lower extremities. Still has some pain in the right knee presumably related to gout. OBJECTIVE: Vital signs: Temperature 97.8 degrees, pulse 109, respirations 23, blood pressure 86/52. General: Awake, chronically ill, in no distress. HEENT: Unremarkable. Prominent jugular veins. Chest: Diminished breath sounds at bases. Heart: Sounds are regular, rhythmic, with gallop. Abdomen: Distended, question of ascites. Extremities: Showed 2-3+ edema. Neurologic exam: Follows commands, moves all 4 extremities. BLOOD WORK: Sodium 131, potassium 3.7, BUN 15, creatinine 1.2. IMPRESSION: 1. Patient who presented with congestive heart failure, this is systolic, chronic. Ischemic cardiomyopathy is the underlying condition. 2. Atrial fibrillation. 3. Cirrhosis of the liver. 4. Chronic obstructive pulmonary disease. 5. Gout. RECOMMENDATIONS: We will make spironolactone 50 mg twice a day because of the diagnosis of cirrhosis. We will replace magnesium. We will continue with a diuretic program. He probably needs to be on Lasix IV rather than p.o, the p.o. is not going to be effective. We will see how he does. cc: Royal Slaughter MD
[2020-01-21] MEDS: NORCO-10 PO PRN (08:46)
[2020-01-21] MEDS: COLCRYS PO SCH ×2 (08:48→20:13)
[2020-01-21] MEDS: LIPITOR PO SCH (08:48)
[2020-01-21] MEDS: ALDACTONE PO SCH ×2 (08:49→20:13)
[2020-01-21] MEDS: LANOXIN PO SCH (08:50)
[2020-01-21] MEDS: ELIQUIS PO SCH ×2 (08:51→20:14)
[2020-01-21] MEDS: ASPIRIN PO SCH (08:51)
[2020-01-21] MEDS: SYNTHROID PO SCH (08:52)
[2020-01-21] MEDS: COREG PO SCH ×2 (08:52→20:14)
[2020-01-21] MEDS: BIDIL PO SCH ×2 (09:03→20:13)
[2020-01-21] MEDS ORDERED: MAGNESIUM SULFATE 4 GM/S.W.I. 4 GM/100 ML IVPB IV ONE (10:28)
--- NOTE | 2020-01-21 10:41 | CARDIOLOGY PROGRESS NOTE ---
DATE: 01/21/2020 CHIEF COMPLAINT: Shortness of breath, weakness, hypotension. SUBJECTIVE: Mr. Conroy feels better. Breathing is more comfortable. He is not having any more pain in the right knee. It is still somewhat swollen. OBJECTIVE: Blood pressure is 109/60, temperature 97.7, pulse 94, respirations 20. He is awake, alert, follows commands. HEENT: Jugular veins are distended. Chest: Sounds relatively clear to auscultation and percussion. Heart sounds are regular and rhythmic. I do not hear gallop or murmur. His abdomen is obese, distended. Extremities showed swelling of the right knee, tenderness. Overall, edema seems to be a little less. Neurologic: Follows commands, moves all 4 extremities. DIAGNOSTIC DATA: Blood work shows sodium 131, potassium 3.7, BUN is 15, creatinine 1.2. Hemoglobin 10.9, white cell count 4090. IMPRESSION: 1. The patient presented with episode of exacerbation of congestive heart failure. This is ischemic cardiomyopathy, prior coronary bypass surgery, advanced, functional class 4 [place] [employer]. 2. Atrial fibrillation. 3. Chronic obstructive pulmonary disease. 4. Gout. 5. Cirrhosis of the liver. RECOMMENDATIONS: At this time, we will continue with present medical therapy. I have instructed the nurses to just cut down the dosage of BiDil to just half of the current dose. We are giving Lasix IV plus albumin to ensure adequate diuresis. We will give him some extra magnesium today. Further advice will be forthcoming. Thank you for asking us to participate in his care. cc: Royal Slaughter MD
[2020-01-21] MEDS: LASIX IV SCH (11:29)
[2020-01-21] MEDS ORDERED: ALBUMIN 25% IV ONE (12:15)
--- NOTE | 2020-01-21 15:45 | PROGRESS NOTE ---
DATE: 01/21/2020 SUBJECTIVE: Mr. Conroy is feeling much better. His knee is feeling better. He thinks his legs are less swollen, but it has been very slow. Breathing he says is kind of off and, but breathing comfortably at the present time. OBJECTIVE: Vital Signs: He remains afebrile, temperature 98 degrees, pulse 100, respirations 19, blood pressure 96/65. HEENT: Pupils are equal and round. Lungs: Clear in all lung maier. Cardiovascular: Regular rate without murmur or S3. Abdomen: Soft. Skin: Warm and dry. Urine output is 1600 mL. ASSESSMENT AND PLAN: 1. The patient with an episode of exacerbation of congestive heart failure, ischemic cardiomyopathy, prior coronary bypass surgery. He is a functional class 4 [place] [employer]. Ejection fraction estimated 10% to 15%. Biventricular failure, and slow to diuresis because of his hypotension. 2. Atrial fibrillation rate is controlled. 3. Chronic obstructive pulmonary disease. 4. Gout. 5. Cirrhosis of the liver. 6. Continue current attempts at therapy an inotropic agent. He is on Eliquis 5 mg twice a day, aspirin 81 mg a day, Lipitor 10 mg a day, Coreg 3.125 mg b.i.d., colchicine 0.6 mg b.i.d., digoxin 125 mcg a day, Lasix 80 mg IV daily, and he is getting milrinone IV, spironolactone 50 mg p.o. b.i.d. We are giving him some albumin before we give the Lasix. He is on methylprednisone 20 mg IV q.12 hours, Synthroid 50 mcg daily, norepinephrine drip. cc: Jamarcus Robbins MD
[2020-01-21] MEDS: ZOFRAN IV PRN (16:18)
[2020-01-21] MEDS: MORPHINE IV PRN (20:15)
[2020-01-22] MEDS: PRIMACOR 20 MG/D5W 100 ML 20 MG/100 ML IVPB IV SCH ×2 (05:46→16:40)
[2020-01-22] MEDS: SOLU-MEDROL IV SCH ×2 (05:46→16:43)
[2020-01-22] MEDS: SYNTHROID PO SCH (09:50)
[2020-01-22] MEDS: ASPIRIN PO SCH (09:50)
[2020-01-22] MEDS: LANOXIN PO SCH (09:58)
[2020-01-22] MEDS: LIPITOR PO SCH (09:59)
[2020-01-22] MEDS: ALDACTONE PO SCH ×2 (09:59→21:18)
[2020-01-22] MEDS: COLCRYS PO SCH ×2 (10:00→21:18)
[2020-01-22] MEDS: ELIQUIS PO SCH ×2 (10:00→21:18)
[2020-01-22] MEDS: COREG PO SCH ×2 (10:00→21:18)
[2020-01-22] MEDS: BIDIL PO SCH ×2 (10:20→23:35)
--- NOTE | 2020-01-22 11:16 | PROGRESS NOTE ---
DATE: 01/22/2020 SUBJECTIVE: Mr. Conroy is better. His breathing is a little bit better. He has very slow diuresis. OBJECTIVE: Remains afebrile, temperature 98.1 degrees, pulse 118, respirations 20, blood pressure 93/61. Pupils are equal and round. Lungs are clear in all lung maier cardiovascular regular rate without murmur or S3. Abdomen: Soft, nondistended. He has 2+ pitting edema from ankle all the way up to his thighs. Urine output was 1,700 mL. ASSESSMENT AND PLAN: 1. Exacerbation of congestive heart failure, ischemic cardiomyopathy, prior coronary artery bypass. He has a functional class 4 [place] [employer]. Ejection fraction estimated 10 to 15 percent. Biventricular failure, very slow diuresis continue present regimen, trying to maximize afterload and diurese. He is on norepinephrine. 2. Atrial fibrillation. Rate is controlled. 3. Chronic obstructive pulmonary disease. 4. Gout. 5. Cirrhosis of the liver. Aware. 6. His right knee had some inflammation in the anterior around his patella and it is better. He does have a history of gout. He is on colchicine. I put him on some Solu-Medrol I will diminish his Solu-Medrol. REVIEW OF HIS ORDERS: He is on Eliquis 5 mg b.i.d., aspirin 81 mg a day, Lipitor 10 mg a day, Coreg 3.125 mg b.i.d., colchicine 0.6 mg p.o. b.i.d., digoxin 125 mcg p.o. daily, Lasix 80 mg IV q.24 hours, hydrocodone he is getting 10 mg t.i.d. p.r.n. methylprednisone is down to 20 mg IV q.12. He is on Milrinone and drip and he is on Synthroid 50 mcg daily and spironolactone 50 mg p.o. b.i.d., norepinephrine drip. LABORATORY DATA: Review of his lab reviewed from the . We will check electrolytes and CBC again in the morning. cc: Jamarcus Robbins MD
[2020-01-22] MEDS: LASIX IV SCH (14:11)
[2020-01-23] MEDS: PRIMACOR 20 MG/D5W 100 ML 20 MG/100 ML IVPB IV SCH (03:24)
[2020-01-23] MEDS: SOLU-MEDROL IV SCH ×2 (04:00→18:27)
[2020-01-23 06:40] LABS: EOS# 0.05 X1000 (0.0-0.7); EOS% 0.8 % (0.0-10.0); HEMATOCRIT 30.2 % (42.0-52.0); HEMOGLOBIN 9.9 g/dL (14.0-18.0); IMM GRAN# 0.03 X1000 (0.0-0.04); IMM GRAN% 0.5 % (0.0-0.5); LYMPH# 0.54 X1000 (1.2-3.4); LYMPH% 8.3 % (20.5-51.1); MCH 32.7 PG (27-31); MCHC 32.8 g/dL (33-37); MCV 99.7 FL (81-99); MONO# 0.41 X1000 (0.11-0.59); MONO% 6.3 % (1.7-9.3); MPV 9.1 FL (7.4-10.4); NEUT# 5.46 X1000 (1.4-6.5); NEUT% 84.1 % (42.2-75.2); PLT 92 X1000 (130-400); RBC 3.03 XMIL (4.7-6.1); RDW 13.3 % (11.5-14.5); WBC 6.49 X1000 (4.8-10.8)
[2020-01-23 06:53] LABS: CREATININE 1.9 mg/dL (0.7-1.2); MAGNESIUM 2.6 mg/dL (1.5-2.7); POTASSIUM 4.4 mmol/L (3.5-5.1)
--- NOTE | 2020-01-23 07:37 | Diag Imaging Result Doc PS360 ---
EXAM: CHEST-PORTABLE INDICATION: chf TECHNIQUE: One view COMPARISON: 01/20/2020 FINDINGS: Inspiration is suboptimal. The interstitial thickening seen previously has questionably improved marginally. No new consolidation is appreciated. Cardiac silhouette is stable. IMPRESSION: Questionable marginal improvement of interstitial thickening. Electronically signed by Salty Moncada 01/23/2020 7:35 AM
[2020-01-23] MEDS: ASPIRIN PO SCH (08:02)
[2020-01-23] MEDS: ELIQUIS PO SCH ×2 (08:02→20:48)
[2020-01-23] MEDS: LANOXIN PO SCH (08:02)
[2020-01-23] MEDS: LIPITOR PO SCH (08:02)
[2020-01-23] MEDS: COREG PO SCH ×2 (08:03→20:48)
[2020-01-23] MEDS: COLCRYS PO SCH ×2 (08:03→20:47)
[2020-01-23] MEDS: ALDACTONE PO SCH (08:03)
[2020-01-23] MEDS: SYNTHROID PO SCH (08:04)
[2020-01-23] MEDS: BIDIL PO SCH ×2 (08:04→20:50)
[2020-01-23 20:00] LABS: URINE SOURCE CLEAN CATCH
[2020-01-23 20:04] LABS: BILIRUBIN URINE NEGATIVE (NEGATIVE); BLOOD URINE NEGATIVE (NEGATIVE); COLOR YELLOW; GLUCOSE URINE NEGATIVE (NEGATIVE); KETONE URINE NEGATIVE (NEGATIVE); LEUKOCYTES URINE NEGATIVE (NEGATIVE); NITRITE URINE NEGATIVE (NEGATIVE); PROTEIN URINE TRACE mg/dL (NEGATIVE); SP GRAVITY URINE 1.021; TURBIDITY URINE CLEAR (CLEAR); UR EPITHELIAL CELLS <10 /HPF (<10); URINE BACTERIA NEGATIVE /HPF; URINE RBC <10 /HPF (<10); URINE WBC <10 /HPF (<10); UROBILINOGEN URINE NORMAL (NORMAL)
[2020-01-23 20:21] LABS: UR CREAT RANDOM 86.2 mg/dL (14-26); UR PROT RANDOM 11.7 mg/dL
--- NOTE | 2020-01-24 03:45 | PROGRESS NOTE ---
DATE: 01/23/2020 SUBJECTIVE: The patient is sitting up in a chair. He has no complaints. OBJECTIVE: Vital Signs: Temperature 98.2 degrees, blood pressure 106/69, heart rate 87, respirations 18, O2 saturation 94% on 3 L nasal cannula, intake 101 L, output 602. General: This is a chronically ill-appearing, elderly male, sitting up in a chair in no acute distress. Heart: S1, S2 normal. Lungs: Equal air entry bilaterally. Abdomen: Positive bowel sounds. Soft, nontender, nondistended. Extremities: 2+ edema. Neurologic: The patient is alert. LABS: White blood cell count 6.4, hemoglobin 9.9, hematocrit 30, platelets 92,000. Sodium 134, potassium 4.4, chloride 97, CO2 23, BUN 54, creatinine 1.9, glucose 106. IMAGING: Chest x-ray shows interstitial thickening. ASSESSMENT AND PLAN: 1. Acute on chronic systolic congestive heart failure exacerbation. The patient is currently on a Primacor drip and diuretic therapy. Further management as per the mold stamper and repairer. 2. Acute kidney injury. The patient's BUN and creatinine have increased; however, the patient is on diuretic therapy. Urine studies have been ordered. 3. Liver cirrhosis. Aware. 4. Atrial fibrillation. Continue on the current medications as recommended by the mold stamper and repairer. 5. Anemia. We will monitor the hemoglobin and hematocrit closely. 6. Hyponatremia. Improved. 7. Deep vein thrombosis prophylaxis. The patient is on Eliquis. 8. Disposition. Continue with physical therapy. cc: Danielle Xiao MD MTDD
[2020-01-24] MEDS: SOLU-MEDROL IV SCH (05:17)
[2020-01-24 06:46] LABS: HEMATOCRIT 30.6 % (42.0-52.0); HEMOGLOBIN 10.1 g/dL (14.0-18.0); MCH 33.1 PG (27-31); MCV 100.3 FL (81-99); MPV 9.4 FL (7.4-10.4); RBC 3.05 XMIL (4.7-6.1); RDW 13.4 % (11.5-14.5); WBC 7.61 X1000 (4.8-10.8)
[2020-01-24 06:55] LABS: ALBUMIN 2.6 g/dL (3.5-5.0); CREATININE 1.8 mg/dL (0.7-1.2); MAGNESIUM 2.5 mg/dL (1.5-2.7); PHOSPHORUS 3.5 mg/dL (2.7-4.5); POTASSIUM 4.7 mmol/L (3.5-5.1)
[2020-01-24 07:21] LABS: DIGOXIN 0.8 ng/mL (0.9-2.0)
[2020-01-24] MEDS: BIDIL PO SCH ×2 (09:36→20:24)
[2020-01-24] MEDS: COLCRYS PO SCH ×2 (09:36→20:24)
[2020-01-24] MEDS: ELIQUIS PO SCH ×2 (09:36→20:24)
[2020-01-24] MEDS: LANOXIN PO SCH (09:36)
[2020-01-24] MEDS: ALDACTONE PO SCH (09:36)
[2020-01-24] MEDS: MYLICON PO SCH ×4 (09:36→20:24)
[2020-01-24] MEDS: SYNTHROID PO SCH (09:37)
[2020-01-24] MEDS: LIPITOR PO SCH (09:37)
[2020-01-24] MEDS: ASPIRIN PO SCH (09:37)
[2020-01-24] MEDS: COREG PO SCH ×2 (09:37→20:24)
[2020-01-24] MEDS: NORCO-10 PO PRN ×2 (13:19→21:28)
[2020-01-24] MEDS ORDERED: IMODIUM PO ONE (18:55)
--- NOTE | 2020-01-24 19:29 | PROGRESS NOTE ---
DATE: 01/24/2020 SUBJECTIVE: The patient is resting comfortably in bed. He states that he has been having diarrhea. He continues to complain of swelling in his legs up to his thighs. OBJECTIVE: Vital Signs: Temperature 97.9 degrees, blood pressure 111/74, heart rate 88, respirations 18, O2 saturation is 100% on 4 L nasal cannula, intake 524, output 550. General: This is a chronically ill-appearing elderly male lying in bed in no acute distress. Heart: S1, S2 normal. Lungs: Equal air entry bilaterally. Abdomen: Positive bowel sounds. Soft, nontender, nondistended. Extremities: 3+ edema up to the thighs. Neurologic: The patient is alert and oriented x3. LABORATORY DATA: White blood cell count 7.6, hemoglobin 10, hematocrit 30, platelets 96,000. Sodium 133, potassium 4.7, chloride 97, CO2 25, BUN 67, creatinine 1.8, glucose 130. ASSESSMENT AND PLAN: 1. Acute on chronic systolic congestive heart failure exacerbation. The Lasix was discontinued yesterday due to renal insufficiency. We will continue with the current management as directed by the combustion engineer. 2. Acute kidney injury. Unchanged. Continue to monitor the patient off of diuretic therapy. 3. Liver cirrhosis. Aware. 4. Severe ischemic cardiomyopathy with an ejection fraction of 10% to 15%. Aware. 5. Status post automatic implantable cardioverter-defibrillator placement. 6. Coronary artery disease status post coronary artery bypass graft. Continue on the current cardiac medications. 7. History of hepatitis C. Aware. 8. Thrombocytopenia. Aware. 9. Tobacco dependence. The patient has been counseled about smoking cessation. 10. Deep vein thrombosis prophylaxis. The patient is on Eliquis. cc: Danielle Xiao MD MTDD
[2020-01-25] MEDS: NORCO-10 PO PRN ×2 (05:24→13:50)
[2020-01-25 05:48] LABS: HEMATOCRIT 31.3 % (42.0-52.0); HEMOGLOBIN 10.3 g/dL (14.0-18.0); MCHC 32.9 g/dL (33-37); MCV 100.3 FL (81-99); MPV 9.6 FL (7.4-10.4); RBC 3.12 XMIL (4.7-6.1); RDW 13.5 % (11.5-14.5); WBC 11.79 X1000 (4.8-10.8)
[2020-01-25 06:17] LABS: ALBUMIN 2.8 g/dL (3.5-5.0); CALCIUM 8.2 mg/dL (8.8-10.2); CREATININE 1.7 mg/dL (0.7-1.2); PHOSPHORUS 3.5 mg/dL (2.7-4.5); POTASSIUM 4.8 mmol/L (3.5-5.1)
--- NOTE | 2020-01-25 06:43 | Diag Imaging Result Doc PS360 ---
CHEST-PORTABLE - 01/25/2020 INDICATION: dyspnea COMPARISON: 01/23/2020 FINDINGS: Stable sternotomy changes and left-sided pacemaker. Stable severe cardiomegaly. Pulmonary vascularity is grossly normal. There has been slight improvement in the central infiltrates/pulmonary edema. No significant infiltrates at this time. No pleural effusion. IMPRESSION: Cardiomegaly. Electronically signed by Agustin Langley 01/25/2020 6:40 AM
[2020-01-25] MEDS ORDERED: SAMSCA PO ONE (08:00)
[2020-01-25] MEDS: SYNTHROID PO SCH (08:25)
[2020-01-25] MEDS: LIPITOR PO SCH (08:25)
[2020-01-25] MEDS: ELIQUIS PO SCH ×2 (08:25→20:32)
[2020-01-25] MEDS: ASPIRIN PO SCH (08:25)
[2020-01-25] MEDS: ALDACTONE PO SCH (08:25)
[2020-01-25] MEDS: COLCRYS PO SCH ×2 (08:25→20:32)
[2020-01-25] MEDS: MYLICON PO SCH ×4 (08:25→20:32)
[2020-01-25] MEDS: COREG PO SCH ×2 (08:25→20:32)
[2020-01-25] MEDS: LANOXIN PO SCH (08:25)
[2020-01-25] MEDS: BIDIL PO SCH ×2 (08:25→20:32)
[2020-01-25] MEDS ORDERED: OFIRMEV 1000 MG/ISOTONIC SOLN 1,000 MG/100 ML BOTTLE IV PRN (13:03)
--- NOTE | 2020-01-25 15:20 | PROGRESS NOTE ---
DATE: 01/25/2020 SUBJECTIVE: The patient is resting comfortably in bed. He states that he is no longer having diarrhea. No acute events noted overnight. OBJECTIVE: Vital Signs: Temperature 97.9 degrees, blood pressure 80/58, heart rate 90, respirations 17, O2 saturation is 100% on 2 L nasal cannula. Intake 800, output 900. General: This is a chronically ill-appearing, elderly male lying in bed, in no acute distress. Heart: S1, S2 normal. Lungs: Diminished breath sounds at the bases. No wheezing. Abdomen: Positive bowel sounds. Soft, nontender, nondistended. Extremities: There is 3+ edema up to the thighs. Neurologic: The patient is alert and oriented x3. Labs: White blood cell count 11, hemoglobin 10, hematocrit 31, platelets 101,000. Sodium 130, potassium 4.8, chloride 95, CO2 of 24, BUN 62, creatinine 1.7, glucose 104, calcium 8.2, albumin 2.8, phosphorus 3.5. Chest x-ray shows severe cardiomegaly. No infiltrates. Improvement in the pulmonary edema. ASSESSMENT AND PLAN: 1. Acute on chronic systolic congestive heart failure exacerbation. Continue on the current cardiac regimen. 2. Hyponatremia. We will give the patient a dose of Samsca. This should also help with diuresis. Continue to monitor the sodium closely. 3. Acute kidney injury. Slowly improving. We will continue to monitor the patient off of diuretic therapy. 4. Liver cirrhosis. Aware. 5. Severe ischemic cardiomyopathy, status post automatic implantable cardioverter defibrillator with an ejection fraction of 10 to 15 percent. Aware. 6. Coronary artery disease, status post coronary artery bypass graft. Continue on the current cardiac medications. 7. History of hepatitis C. Aware. 8. Thrombocytopenia. Stable. 9. Anemia of chronic disease. Stable. 10. Tobacco dependence. The patient has been counseled about smoking cessation. 11. Deep vein thrombosis prophylaxis. Continue on Eliquis. 12. Disposition. Continue with physical therapy. cc: Danielle Xiao MD MTDD
[2020-01-26 05:56] LABS: HEMATOCRIT 29.8 % (42.0-52.0); HEMOGLOBIN 9.9 g/dL (14.0-18.0); MCH 33.4 PG (27-31); MCHC 33.2 g/dL (33-37); MCV 100.7 FL (81-99); MPV 9.7 FL (7.4-10.4); RBC 2.96 XMIL (4.7-6.1); RDW 13.6 % (11.5-14.5); WBC 12.14 X1000 (4.8-10.8)
[2020-01-26 06:44] LABS: ALBUMIN 2.8 g/dL (3.5-5.0); CREATININE 1.5 mg/dL (0.7-1.2); MAGNESIUM 2.2 mg/dL (1.5-2.7); PHOSPHORUS 3.4 mg/dL (2.7-4.5); POTASSIUM 4.7 mmol/L (3.5-5.1)
[2020-01-26] MEDS: LIPITOR PO SCH (09:06)
[2020-01-26] MEDS: LANOXIN PO SCH (09:06)
[2020-01-26] MEDS: ELIQUIS PO SCH ×2 (09:06→20:33)
[2020-01-26] MEDS: BIDIL PO SCH ×2 (09:06→20:33)
[2020-01-26] MEDS: SYNTHROID PO SCH (09:06)
[2020-01-26] MEDS: COLCRYS PO SCH ×2 (09:06→20:33)
[2020-01-26] MEDS: ALDACTONE PO SCH (09:06)
[2020-01-26] MEDS: ASPIRIN PO SCH (09:06)
[2020-01-26] MEDS: MYLICON PO SCH ×4 (09:06→20:33)
[2020-01-26] MEDS: COREG PO SCH ×2 (09:06→20:33)
[2020-01-26] MEDS: NORCO-10 PO PRN (12:42)
--- NOTE | 2020-01-26 20:14 | PROGRESS NOTE ---
DATE: 01/26/2020 SUBJECTIVE: The patient is resting comfortably in bed. He has no complaints. His legs are still swollen. OBJECTIVE: Vital Signs: Temperature 98 degrees, blood pressure 93/72, heart rate 98, respirations 16, O2 saturation 95% on 2 L nasal cannula, intake 596, output 1 L. General: This is a chronically ill-appearing elderly male lying in bed in no acute distress. Heart: S1, S2 normal. Lungs: Coarse breath sounds bilaterally. Abdomen: Positive bowel sounds. Soft, nontender, nondistended. Extremities: 3+ edema up to the thighs. Neurologic: The patient is alert and oriented x3. LABORATORY DATA: White blood cell count 12, hemoglobin 9.9, hematocrit 29, platelets 117,000. Sodium 139, potassium 4.7, chloride 101, CO2 28, BUN 54, creatinine 1.5, glucose 96, albumin 2.8. ASSESSMENT AND PLAN: 1. Acute on chronic systolic congestive heart failure exacerbation. The patient's cardiac medications have been adjusted by the director of public relations. We will continue to monitor closely. 2. Acute kidney injury. Improved. The patient was on a diuretic holiday. The diuretic therapy was restarted today. We will monitor the patient's renal function closely. 3. Hypothyroidism. Continue on Synthroid. 4. Ischemic cardiomyopathy status post automatic implantable cardioverter- defibrillator with an ejection fraction of 10% to 15%. Aware. 5. Leukocytosis. The patient's white blood cell count is climbing. The chest x-ray does not show any infiltrates. We will treat with empiric antibiotic therapy and monitor closely. We will also check a procalcitonin level. 6. Liver cirrhosis. Aware. 7. Thrombocytopenia. Stable. 8. History of hepatitis C. Aware. 9. Coronary artery disease status post coronary artery bypass graft. Continue on the current cardiac medications. 10. Tobacco dependence. The patient has been counseled about smoking cessation. 11. Deep vein thrombosis prophylaxis. Continue on Eliquis. 12. Disposition. Continue with physical therapy. We will plan to discharge the patient home once he is medically stable. cc: Danielle Xiao MD [facility]
[2020-01-26] MEDS: MAXIPIME 1 GM in NS 50 ML IV SCH (20:46)
[2020-01-26] MEDS: ZYVOX 600 MG/D5W 600 MG/300 ML IVPB IV SCH (20:46)
[2020-01-27 06:22] LABS: BASO# 0.03 X1000 (0.0-0.2); BASO% 0.2 % (0.0-0.8); EOS# 0.15 X1000 (0.0-0.7); EOS% 1.1 % (0.0-10.0); HEMATOCRIT 28.6 % (42.0-52.0); HEMOGLOBIN 9.2 g/dL (14.0-18.0); IMM GRAN# 0.49 X1000 (0.0-0.04); IMM GRAN% 3.7 % (0.0-0.5); LYMPH# 2.29 X1000 (1.2-3.4); LYMPH% 17.1 % (20.5-51.1); MCH 31.9 PG (27-31); MCHC 32.2 g/dL (33-37); MCV 99.3 FL (81-99); MONO# 1.21 X1000 (0.11-0.59); MPV 10.3 FL (7.4-10.4); NEUT# 9.23 X1000 (1.4-6.5); NEUT% 68.9 % (42.2-75.2); PLT 171 X1000 (130-400); RBC 2.88 XMIL (4.7-6.1); RDW 13.3 % (11.5-14.5)
[2020-01-27 07:03] LABS: AGAP 12; BUN 43 mg/dL (8-22); CALCIUM 8.3 mg/dL (8.8-10.2); CHLORIDE 101 mmol/L (98-107); COSMO 275; CREATININE 1.4 mg/dL (0.7-1.2); ESTIMATED GFR > 60; GLUCOSE 93 mg/dL (70-104); POTASSIUM 5.2 mmol/L (3.5-5.1); SODIUM 132 mmol/L (136-145); TCO2 19 mmol/L (25-35)
[2020-01-27 07:17] LABS: LYMPHS 6 % (21-51); MONO 2 % (1-9); SEGS 80 % (42-75)
[2020-01-27] MEDS: ALDACTONE PO SCH (08:23)
[2020-01-27] MEDS: LASIX PO SCH (08:24)
[2020-01-27] MEDS: BIDIL PO SCH ×2 (08:24→20:56)
[2020-01-27] MEDS: COREG PO SCH ×2 (08:24→20:56)
[2020-01-27] MEDS: LANOXIN PO SCH (08:24)
[2020-01-27 08:27] LABS: URINE SOURCE CLEAN CATCH
[2020-01-27 08:32] LABS: BILIRUBIN URINE NEGATIVE (NEGATIVE); BLOOD URINE NEGATIVE (NEGATIVE); COLOR YELLOW; GLUCOSE URINE NEGATIVE (NEGATIVE); KETONE URINE NEGATIVE (NEGATIVE); LEUKOCYTES URINE NEGATIVE (NEGATIVE); NITRITE URINE NEGATIVE (NEGATIVE); PH URINE 5.5; PROTEIN URINE NEGATIVE (NEGATIVE); SP GRAVITY URINE 1.014; TURBIDITY URINE CLEAR (CLEAR); UROBILINOGEN URINE NORMAL (NORMAL)
[2020-01-27] MEDS: MAXIPIME 1 GM in NS 50 ML IV SCH ×2 (08:33→20:55)
[2020-01-27] MEDS: ZYVOX 600 MG/D5W 600 MG/300 ML IVPB IV SCH ×2 (08:33→20:55)
[2020-01-27 08:34] LABS: UR EPITHELIAL CELLS <10 /HPF (<10); URINE BACTERIA NEGATIVE /HPF; URINE RBC <10 /HPF (<10); URINE WBC <10 /HPF (<10)
[2020-01-27] MEDS: SYNTHROID PO SCH (08:35)
[2020-01-27] MEDS: ASPIRIN PO SCH (08:35)
[2020-01-27] MEDS: COLCRYS PO SCH ×2 (08:35→20:56)
[2020-01-27] MEDS: LIPITOR PO SCH (08:35)
[2020-01-27] MEDS: MYLICON PO SCH ×4 (08:35→20:56)
[2020-01-27] MEDS: ELIQUIS PO SCH ×2 (08:35→20:56)
--- NOTE | 2020-01-27 10:00 | Diag Imaging Result Doc PS360 ---
EXAM: CHEST-1 VIEW HISTORY: pneumonia TECHNIQUE: Single view COMPARISON: 01/25/2020 FINDINGS: The lungs are well expanded. The heart is enlarged. There are sternal wires and a left-sided pacemaker. No pleural effusions identified. No consolidation. IMPRESSION: Stable cardiomegaly Electronically signed by Satnam Hardwick 01/27/2020 9:57 AM
[2020-01-27] MEDS: ZOFRAN IV PRN (12:23)
--- NOTE | 2020-01-27 13:09 | PROGRESS NOTE ---
DATE: 01/27/2020 SUBJECTIVE: The patient denies shortness of breath or chest discomfort on room air presently. OBJECTIVE: Vital signs: Blood pressure 92/65, heart rate 85, oxygen saturation 95% on room air. Neck: There is no significant jugular venous distention. Chest: Clear to auscultation bilaterally. Cardiac Exam: Reveals an irregular rate and rhythm without appreciable murmur or gallop. There is no evidence of peripheral edema. LABORATORY DATA: Includes a white blood cell count 13.4, hematocrit 28.6, hemoglobin 9.2, platelet count 171,000. Sodium 132, potassium 5.2, chloride 101, carbon dioxide 19, BUN 43, creatinine 1.4, glucose 93. IMPRESSION: 1. Recent [id number] systolic heart failure. The patient diuresed and developed some prerenal azotemia after which the patient had Lasix holiday. Patient appears euvolemic today and Lasix has been resumed at 40 mg daily. 2. Atherosclerotic coronary disease and severe ischemic cardiomyopathy with history of previous coronary bypass surgery. 3. Atrial fibrillation. 4. Chronic obstructive pulmonary disease. 5. Cirrhosis of the liver. RECOMMENDATIONS: 1. Continue current cardiovascular regimen with Lasix resumed to 40 mg p.o. daily today. 2. Further management per Dr. So upon his return Wednesday. cc: Chucho Magana MD
--- NOTE | 2020-01-27 13:37 | Diag Imaging Result Doc PS360 ---
EXAM: ABDOMEN FLAT/UPRIGHT HISTORY: abdominal pain TECHNIQUE: Two views COMPARISON: 12/08/2016 FINDINGS: The bowel loops are not dilated. No organomegaly. No abnormal abdominal calcifications. There is a left pelvic phlebolith. No foreign body. IMPRESSION: Negative exam Electronically signed by Satnam Hardwick 01/27/2020 1:34 PM
--- NOTE | 2020-01-27 16:47 | PROGRESS NOTE ---
DATE: 01/27/2020 SUBJECTIVE: The patient is sitting up at the edge of the bed. He states that he had an episode of nausea and subsequent vomiting, and he also had a liquid bowel movement at the same time. He states that he does not feel hungry at this time. OBJECTIVE: Vital Signs: Temperature 98 degrees, blood pressure 92/68, heart rate 116, respirations 17, O2 saturation is 96% on 2 L nasal cannula. Intake 946, output 2.5. General: This is a chronically ill-appearing elderly male sitting at the edge of the bed in no acute distress. Heart: S1, S2 normal. Lungs: Equal air entry bilaterally. No wheezing. No rales. No rhonchi. Abdomen: Positive bowel sounds. Soft, nontender, nondistended. Extremities: With 3+ edema up to the thighs. Neurologic: The patient is alert and oriented x3. LABORATORY DATA: White blood cell count 13, hemoglobin 9.2, hematocrit 28, platelets 171,000. Sodium 132, potassium 5.2, chloride 101, CO2 is 19, BUN 43, creatinine 1.4, glucose 93. UA negative. ASSESSMENT AND PLAN: 1. Acute on chronic systolic congestive heart failure exacerbation. Continue on the current cardiac regimen as directed by the manager internet. 2. Acute kidney injury. Slowly improving. The patient is back on diuretic therapy. 3. Hypothyroidism. Continue on Synthroid. 4. Ischemic cardiomyopathy status post AICD with an ejection fraction of 10% to 15%. Aware. 5. Leukocytosis. This appears to be worse today. The chest x-ray and urinalysis are not showing any evidence of infection. Continue with empiric antibiotic therapy. The procalcitonin level is currently pending. 6. Liver cirrhosis. Aware. 7. Coronary artery disease status post coronary artery bypass graft. Continue on the current cardiac medications. 8. History of hepatitis C. Aware. 9. Tobacco dependence. Continue to preparole counseling aide the patient about smoking cessation. 10. Deep vein thrombosis prophylaxis. Continue on Eliquis. cc: Danielle Xiao MD MTDD
[2020-01-27] MEDS: NORCO-10 PO PRN (21:06)
[2020-01-28] MEDS: ZOFRAN IV PRN ×2 (02:31→11:24)
[2020-01-28 06:25] LABS: BASO# 0.03 X1000 (0.0-0.2); BASO% 0.3 % (0.0-0.8); EOS# 0.14 X1000 (0.0-0.7); EOS% 1.2 % (0.0-10.0); HEMATOCRIT 29.1 % (42.0-52.0); HEMOGLOBIN 9.4 g/dL (14.0-18.0); IMM GRAN% 5.2 % (0.0-0.5); LYMPH# 1.11 X1000 (1.2-3.4); LYMPH% 9.3 % (20.5-51.1); MCHC 32.3 g/dL (33-37); MONO# 1.98 X1000 (0.11-0.59); MONO% 16.6 % (1.7-9.3); MPV 9.9 FL (7.4-10.4); NEUT# 8.07 X1000 (1.4-6.5); NEUT% 67.4 % (42.2-75.2); PLT 215 X1000 (130-400); RBC 2.94 XMIL (4.7-6.1); RDW 13.8 % (11.5-14.5); WBC 11.95 X1000 (4.8-10.8)
[2020-01-28 06:26] LABS: IMM GRAN# 0.62 X1000 (0.0-0.04)
[2020-01-28 06:48] LABS: CALCIUM 8.4 mg/dL (8.8-10.2); CREATININE 1.5 mg/dL (0.7-1.2); POTASSIUM 4.6 mmol/L (3.5-5.1)
[2020-01-28] MEDS: ZYVOX 600 MG/D5W 600 MG/300 ML IVPB IV SCH ×2 (08:41→21:24)
[2020-01-28] MEDS: MYLICON PO SCH ×4 (08:42→21:24)
[2020-01-28] MEDS: MAXIPIME 1 GM in NS 50 ML IV SCH ×2 (08:42→21:23)
[2020-01-28] MEDS: COREG PO SCH ×2 (08:42→21:24)
[2020-01-28] MEDS: LIPITOR PO SCH (08:43)
[2020-01-28] MEDS: BIDIL PO SCH (08:43)
[2020-01-28] MEDS: LANOXIN PO SCH (08:43)
[2020-01-28] MEDS: ELIQUIS PO SCH ×2 (08:43→21:24)
[2020-01-28] MEDS: ALDACTONE PO SCH (08:43)
[2020-01-28] MEDS: ASPIRIN PO SCH (08:43)
[2020-01-28] MEDS: COLCRYS PO SCH ×2 (08:43→21:24)
[2020-01-28] MEDS: SYNTHROID PO SCH (08:43)
[2020-01-28] MEDS: LASIX PO SCH (08:43)
[2020-01-28] MEDS: PROTONIX IV SCH ×3 (12:48→22:19)
--- NOTE | 2020-01-28 15:32 | Diag Imaging Result Doc PS360 ---
CT ABD/PELVIS W/ORAL CONT ONLY - 01/28/2020 INDICATION: abdominal pain/colitis COMPARISON: 01/13/2020 FINDINGS: There is severe cardiomegaly. There is interstitial pulmonary edema in the lung bases. There is a trace right pleural effusion. There is severe body wall edema diffusely. This is significantly worsening since prior. Stable hypodense area in the inferior tip of the spleen. No bowel obstruction or inflammation. Urinary bladder, prostate, and rectum are normal. There are moderate degenerative changes of the spine. No acute or suspicious bony lesion. IMPRESSION: Worsening congestive heart failure and body wall edema. This exam was performed using automated exposure control, adjustment of mA or kV according to patient size, and/or use of iterative reconstruction technique Electronically signed by Agustin Langley 01/28/2020 3:29 PM
--- NOTE | 2020-01-28 19:53 | PROGRESS NOTE ---
DATE: 01/28/2020 SUBJECTIVE: The patient complains of abdominal pain. He also complains of an intermittent episodes of nausea and vomiting. OBJECTIVE: Vital Signs: Temperature 97.9 degrees, blood pressure 93/67, heart rate 108, respirations 18, O2 saturation 99% on 2 L nasal cannula. Intake 1.2 L, output 201. General: This is a chronically ill-appearing elderly male lying in bed in no acute distress. Heart: S1, S2 normal. Lungs: Equal air entry bilaterally. No wheezing. No rales. Abdomen: Positive bowel sounds. Soft, nontender, nondistended. Extremities: 3+ edema up to the thighs. Neurologic: The patient is alert and oriented x3. LABS: White blood cell count 11, hemoglobin 9.4, hematocrit 29, platelets 215,000. Sodium 133, potassium 4.6, chloride 97, CO2 26, BUN 40, creatinine 1.5, glucose 96. IMAGING PROCEDURE: CT of the abdomen and pelvis reveals worsening congestive heart failure and body wall edema. ASSESSMENT AND PLAN: 1. Acute on chronic systolic congestive heart failure exacerbation. The patient is on lasix with no improvement in his volume status. His renal function worsens when his diuretic dosage is increased. Cardiology is following. 2. Acute kidney injury. Unchanged. Continue to monitor closely while on diuretic therapy. 3. Hyponatremia. Likely a consequence of the volume overload. He received Samsca on 01/24 with good results. 4. Ischemic cardiomyopathy status post automated implantable cardioverter- defibrillator with an ejection fraction of 10 to 50 percent. Aware. 5. Esophageal varices. Aware. 6. History of gastric and duodenal ulcers. We will start the patient on Protonix. 7. History of hepatitis C. Aware. 8. Coronary artery disease status post coronary artery bypass graft. Continue on the current cardiac medications. 9. Liver cirrhosis. Aware. 10. Leukocytosis. Improved. Continue with antibiotic therapy. The blood cultures remain negative. 11. Tobacco dependence. The patient has been counseled about smoking cessation. 12. Atrial fibrillation. The patient is on Coreg, digoxin and Eliquis. 13. Disposition. We will plan to discharge the patient home once medically stable. cc: Danielle Xiao MD [facility]
[2020-01-28] MEDS: SODIUM CHLORIDE 0.9% INJ SCH (21:24)
[2020-01-29] MEDS: ZOFRAN IV PRN ×2 (00:22→08:29)
[2020-01-29] MEDS: NORCO-10 PO PRN (01:22)
[2020-01-29 06:04] LABS: HEMATOCRIT 31.4 % (42.0-52.0); HEMOGLOBIN 10.5 g/dL (14.0-18.0); MCH 33.2 PG (27-31); MCHC 33.4 g/dL (33-37); MCV 99.4 FL (81-99); MPV 9.6 FL (7.4-10.4); RBC 3.16 XMIL (4.7-6.1); RDW 14.2 % (11.5-14.5); WBC 15.55 X1000 (4.8-10.8)
[2020-01-29 06:25] LABS: CALCIUM 7.8 mg/dL (8.8-10.2); CREATININE 1.9 mg/dL (0.7-1.2); POTASSIUM 5.1 mmol/L (3.5-5.1)
[2020-01-29] MEDS ORDERED: ALBUMIN 25% IV ONE (08:00)
[2020-01-29] MEDS: MAXIPIME 1 GM in NS 50 ML IV SCH ×2 (08:24→19:50)
[2020-01-29] MEDS: CULTURELLE PO SCH (08:25)
[2020-01-29] MEDS: PROTONIX IV SCH ×2 (08:25→20:00)
[2020-01-29] MEDS: SODIUM CHLORIDE 0.9% INJ SCH ×2 (08:25→20:00)
[2020-01-29] MEDS: LANOXIN PO SCH (08:25)
[2020-01-29] MEDS: COREG PO SCH ×2 (08:25→20:02)
[2020-01-29] MEDS: LASIX IV SCH ×2 (08:25→20:00)
[2020-01-29] MEDS: LIPITOR PO SCH (08:26)
[2020-01-29] MEDS: ASPIRIN PO SCH (08:26)
[2020-01-29] MEDS: SYNTHROID PO SCH (08:26)
[2020-01-29] MEDS: ZYVOX 600 MG/D5W 600 MG/300 ML IVPB IV SCH ×2 (08:26→19:50)
[2020-01-29] MEDS: MYLICON PO SCH ×4 (08:26→20:02)
[2020-01-29] MEDS: ALDACTONE PO SCH (08:26)
[2020-01-29] MEDS: ELIQUIS PO SCH ×2 (08:26→20:02)
--- NOTE | 2020-01-29 11:14 | NEPHROLOGY CONSULTATION ---
DATE: 01/29/2020 CONSULTING PHYSICIAN: Dr. Xiao REASON FOR CONSULTATION: Acute kidney injury. HISTORY OF PRESENT ILLNESS: Mr. Conroy is a 59-year-old man with severe cardiomyopathy. His most recent echocardiogram performed 01/13/2020 with LVEF 10 to 15 percent and dilated right ventricle with severe biatrial enlargement, and severe pulmonary hypertension with pulmonary artery systolic pressure of 66. He has been in the hospital since the and was previously hospitalized in [place] for edema and possible pneumonia. His creatinine has waxed and waned since admission, with maximum creatinine of 1.9 and minimum creatinine of 0.8 on the . Likewise comma his volume status has waxed and waned and overall he is roughly even since admission. He has received oral furosemide as well as IV furosemide. He has received a single dose of Samsca. I do not see that he has received any inotropic therapy since admission. He was last seen by Cardiology on the at which time he was Biodel dose was decreased. and his IV Lasix was continued with IV albumin. PAST MEDICAL HISTORY: As above. He also has a history of atrial flutter, coronary disease, hypertension, hyperlipidemia, cirrhosis, COPD. He has a history of ICD placement as well as coronary artery bypass grafting. CURRENT MEDICATIONS: Include furosemide, apixaban, aspirin, atorvastatin, carvedilol, digoxin, hydrocodone, levothyroxine, cefepime, morphine, acetaminophen, ondansetron, pantoprazole, simethicone, spironolactone, linezolid, albumin. ALLERGIES: None. SOCIAL: Ongoing tobacco use. No recent alcohol. FAMILY HISTORY/REVIEW OF SYSTEMS: Are noncontributory otherwise. PHYSICAL EXAMINATION: Vital Signs: Blood pressure 88/68, heart rate 108 respiration 18, afebrile. General: He is a chronically ill man, in no acute distress. Obvious weight loss. Skin: Warm and dry. Conjunctivae are pink. Oropharynx is dry. Neck: Supple. Neck vein distention is present. Trachea is midline. Heart: Regular with systolic murmur. Lungs: Equal, shallow. No crackles. Abdomen: Distended, soft. Bowel sounds are present. Extremities: With 2+ edema. No clubbing or cyanosis. IMPRESSION: 1. Acute kidney injury. 2. Cardiorenal syndrome. Complicated by hypoalbuminemia and poor cardiac function as well as severe pulmonary hypertension. I agree with albumin and Lasix and I will continue that as ordered. 3. He does not have proteinuria. I do not believe he would derive any long-term benefit from inotropic therapy. 4. Fluid restrict and salt restrict. 5. Poor prognosis. cc: Michael Rabago MD
[2020-01-29 12:33] LABS: URINE SOURCE CLEAN CATCH
[2020-01-29 12:39] LABS: BILIRUBIN URINE NEGATIVE (NEGATIVE); BLOOD URINE NEGATIVE (NEGATIVE); COLOR YELLOW; GLUCOSE URINE NEGATIVE (NEGATIVE); KETONE URINE NEGATIVE (NEGATIVE); LEUKOCYTES URINE NEGATIVE (NEGATIVE); NITRITE URINE NEGATIVE (NEGATIVE); PH URINE 5.5; PROTEIN URINE TRACE mg/dL (NEGATIVE); SP GRAVITY URINE 1.014; TURBIDITY URINE CLEAR (CLEAR); UROBILINOGEN URINE NORMAL (NORMAL)
[2020-01-29 12:41] LABS: UR EPITHELIAL CELLS <10 /HPF (<10); URINE BACTERIA NEGATIVE /HPF; URINE RBC <10 /HPF (<10); URINE WBC <10 /HPF (<10)
[2020-01-29 12:52] LABS: UR CREAT RANDOM 64.2 mg/dL (14-26); UR PROT RANDOM 11.9 mg/dL
[2020-01-29] MEDS ORDERED: FENTANYL ONE (12:56)
[2020-01-29] MEDS ORDERED: DIPRIVAN 1% ONE (12:56)
[2020-01-29] MEDS ORDERED: VERSED ONE (12:56)
[2020-01-29] MEDS ORDERED: DECADRON ONE (13:29)
[2020-01-29] MEDS ORDERED: OFIRMEV 1000 MG/ISOTONIC SOLN 1,000 MG/100 ML BOTTLE ONE (13:29)
[2020-01-29] MEDS ORDERED: TORADOL ONE (13:29)
[2020-01-29] MEDS ORDERED: XYLOCAINE-MPF 2% ONE (13:29)
[2020-01-29] MEDS ORDERED: ZOFRAN ONE (13:29)
--- NOTE | 2020-01-29 16:56 | GASTROENTEROLOGY CONSULTATION ---
DATE: 01/29/2020 REASON FOR CONSULTATION: Abdominal pain, nausea, vomiting. HISTORY OF PRESENT ILLNESS: This is a 59-year-old male who we have not seen in the office since 2016. At that time, patient was actually seen by Dr. Abdalla. The patient was admitted to the hospital on January 12 after a transfer from [facility]. Per patient's report, he states he was in [facility] for several weeks. The patient has been seen by Cardiology and most recently Nephrology. REASON FOR CONSULTATION: Abdominal pain, nausea, vomiting. The patient states he has some generalized abdominal pain. He does have episodes of nausea, has not been able to eat much. He is currently on a clear liquid diet. He is having bowel movements reported as liquid. He has been tested for Clostridium difficile, which came back negative. Stool for WBC, showing many on 01/24/2020. Stool culture was negative. Patient is receiving Protonix and p.r.n. medications for nausea. PAST MEDICAL HISTORY: Systolic congestive heart failure, atrial fibrillation, coronary artery disease, ischemic cardiomyopathy, hypotension, chronic hyperlipidemia, history of cirrhosis of the liver, hepatitis C, chronic kidney disease, COPD. The patient was at [facility] for pneumonia, continued to have worsening symptoms and hypotension and was transferred to [facility] for further management. As noted he has been seen by cardiology and also nephrology. PAST SURGICAL HISTORY: Pacemaker placement, ICD placement, coronary artery bypass graft. ALLERGIES: No known drug allergies. HOME MEDICATIONS: Amiodarone 400 mg daily, Eliquis 5 mg daily, aspirin 81 mg daily, Lipitor 10 mg daily, carvedilol 3.125 twice a day, Colcrys 0.6 mg daily, Flexeril 10 mg 3 times a day, digoxin 125 mcg daily, Lasix 40 mg twice a day, Apresoline 10 mg 3 times a day, hydrocodone 7.5/325 mg every 4 to 6 hours as needed, levothyroxine 50 mcg daily. SOCIAL HISTORY: Positive for tobacco use. Quit alcohol use years ago. . Has 2 children. REVIEW OF SYSTEMS: Per history of present illness. PHYSICAL EXAMINATION: Vital Signs: Temperature 97.9 degrees, pulse 101, respirations 16, blood pressure 76/61. General: Patient is awake and alert. He has oxygen in place by nasal cannula. Cardiovascular: History of pacemaker defibrillator. Respiratory: Lung sounds essentially clear. Abdomen: Soft, some mild tenderness with palpation. Extremities: Bilateral lower extremity edema. Also noted tenderness with palpation to lower extremities. Neurology: Patient is awake and alert, oriented to person, place, and time. DIAGNOSTIC RESULTS: Laboratory: Hematology: WBC 15.55, hemoglobin 10.5, hematocrit 31.4, MCV 99.4, platelets 298,000. Chemistry: Sodium 128, potassium 5.1, chloride 94, CO2 of 22, BUN 36, creatinine 1.9, glucose 148, calcium 7.8, phosphorus 3.4, magnesium 2.2. C-reactive protein 3.73. ProBNP 10,474. Radiology: Abdominal pelvis CT scan showed worsening congestive heart failure and body wall edema. Abdominal x-ray on 01/27/2020 showed negative exam. ASSESSMENT AND PLAN: 1. Acute/chronic congestive heart failure exacerbation. Following recommendation by Cardiology and hospitalist. 2. Acute kidney injury. Patient has been seen by Nephrology. 3. 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 Abdlala in 2016. 4. Nausea, vomiting, multifactorial. Continue PPI and symptomatic treatment with Zofran for nausea and vomiting. PLAN: Continue current management. Unfortunately, not much GI can offer except for symptomatic treatment and supportive care. We will continue to follow and further plans to be made according to his progress. I have discussed this case with Dr. Ballard. Dictated by NILA Schofield for Adrian Ballard MD cc: NILA Macias MD
--- NOTE | 2020-01-29 17:32 | PROGRESS NOTE ---
DATE: 01/29/2020 SUBJECTIVE: The patient is resting. He states that he is still feeling nauseated and has no appetite. He reports that he is having loose stools as well. OBJECTIVE: Vital Signs: Temperature 97.9 degrees, blood pressure 76/61, heart rate 101, respirations 16, O2 saturation is 100% on 2 L nasal cannula. Intake 454. Output 500. General: This is a chronically ill-appearing male sitting up in bed, in no acute distress. Heart: S1, S2 normal. Irregularly irregular rhythm. Lungs: Equal air entry bilaterally. No wheezing. Diminished breath sounds at the bases. Abdomen: Positive bowel sounds. Soft, nontender, nondistended. Extremities: Have 3+ edema up to the thighs. No calf tenderness. Neurologic: The patient is alert and oriented x3. No focal neurologic deficits noted. LABS: White blood cell count 15, hemoglobin 10, hematocrit 31, platelets 298,000. Sodium 128, potassium 5.1, chloride 94, CO2 22, BUN 36, creatinine 1.9, glucose 148, calcium 7.8. ProBNP 10,474. ASSESSMENT AND PLAN: 1. Acute on chronic systolic congestive heart failure exacerbation, NYHA class 4 stage D. The patient did not tolerate inotropic therapy. Will increase the diuretic dosage and add albumin. Will await further recommendations from the Feature Writer. 2. Acute kidney injury. Cardiorenal syndrome is suspected. The case was discussed with Dr. Rabago. 3. Hyponatremia. Likely secondary to volume overload. We will continue to monitor closely while the patient is receiving diuretic therapy. May consider giving a dose of Samsca. 4. Ischemic cardiomyopathy status post automatic implantable cardioverter defibrillator with an ejection fraction of 10 to 15%. Aware. 5. Esophageal varices. Aware. 6. History of gastric and duodenal ulcers. Continue on Protonix. 7. History of hepatitis C. Aware. 8. Liver cirrhosis. Aware. 9. Leukocytosis. The patient does not have an obvious source of infection. He is currently receiving empiric antibiotic therapy. We will monitor closely. 10. Atrial fibrillation. The patient is rate controlled. Continue on Coreg, digoxin, and Eliquis. 11. Tobacco dependence. The patient has been counseled about smoking cessation. 12. Coronary artery disease status post coronary artery bypass graft. Continue on the current cardiac medications. 13. Disposition. Once the patient is medically stable he will be discharged home. The patient is a full code. cc: Danielle Xiao MD
[2020-01-30] MEDS: MORPHINE IV PRN (02:12)
[2020-01-30 06:10] LABS: BASO# 0.02 X1000 (0.0-0.2); BASO% 0.3 % (0.0-0.8); EOS# 0.06 X1000 (0.0-0.7); EOS% 0.8 % (0.0-10.0); HEMATOCRIT 29.5 % (42.0-52.0); HEMOGLOBIN 9.3 g/dL (14.0-18.0); IMM GRAN# 0.15 X1000 (0.0-0.04); IMM GRAN% 1.9 % (0.0-0.5); LYMPH# 1.06 X1000 (1.2-3.4); LYMPH% 13.4 % (20.5-51.1); MCH 31.4 PG (27-31); MCHC 31.5 g/dL (33-37); MCV 99.7 FL (81-99); MONO# 0.92 X1000 (0.11-0.59); MONO% 11.6 % (1.7-9.3); MPV 9.4 FL (7.4-10.4); PLT 256 X1000 (130-400); RBC 2.96 XMIL (4.7-6.1); RDW 14.3 % (11.5-14.5); WBC 7.91 X1000 (4.8-10.8)
--- NOTE | 2020-01-30 06:31 | Diag Imaging Result Doc PS360 ---
CHEST-1 VIEW - 01/30/2020 INDICATION: pulmonary edema COMPARISON: 01/27/2020 FINDINGS: Stable cardiomegaly and pulmonary vascular congestion. There is worsening central interstitial infiltrate bilaterally. No pneumothorax or pleural effusion. IMPRESSION: Worsening interstitial pulmonary edema. Electronically signed by Agustin Langley 01/30/2020 6:28 AM
[2020-01-30 06:32] LABS: CALCIUM 7.5 mg/dL (8.8-10.2); CREATININE 2.1 mg/dL (0.7-1.2); POTASSIUM 3.7 mmol/L (3.5-5.1)
[2020-01-30] MEDS ORDERED: ALBUMIN 25% IV ONE (08:00)
[2020-01-30] MEDS: MAXIPIME 1 GM in NS 50 ML IV SCH (09:49)
[2020-01-30] MEDS: LASIX IV SCH ×2 (09:50→20:52)
[2020-01-30] MEDS: SODIUM CHLORIDE 0.9% INJ SCH ×2 (09:50→20:52)
[2020-01-30] MEDS: PROTONIX IV SCH ×2 (09:50→20:52)
[2020-01-30] MEDS: SYNTHROID PO SCH (09:51)
[2020-01-30] MEDS: ASPIRIN PO SCH (09:51)
[2020-01-30] MEDS: COREG PO SCH ×2 (09:51→20:51)
[2020-01-30] MEDS: LANOXIN PO SCH (09:51)
[2020-01-30] MEDS: ALDACTONE PO SCH (09:51)
[2020-01-30] MEDS: ELIQUIS PO SCH ×2 (09:51→20:51)
[2020-01-30] MEDS: LIPITOR PO SCH (09:51)
[2020-01-30] MEDS: CULTURELLE PO SCH (09:51)
[2020-01-30] MEDS: NORCO-10 PO PRN ×2 (09:52→17:50)
[2020-01-30] MEDS: MYLICON PO SCH ×5 (09:52→20:51)
[2020-01-30] MEDS ORDERED: SAMSCA PO ONE (10:41)
--- NOTE | 2020-01-30 11:53 | PROGRESS NOTE ---
DATE: 01/30/2020 INTERVAL HISTORY: No acute events overnight except an episode of about 24 beats of ventricular tachycardia. Patient was not symptomatic. SUBJECTIVE: Mr. Conroy complains of pleuritic pain in the right lower ribcage and epigastric region. He denies any chest pain or shortness of breath. He complains of nausea and abdominal pain. REVIEW OF SYSTEMS: Positive for nausea. Negative for vomiting. Positive for poor appetite. Positive for epigastric and right upper quadrant discomfort. OBJECTIVE: Vital Signs: Temperature of 97.4 degrees, pulse 96, respiratory rate 16, and blood pressure 87/60. He is saturating 99% on 2 L nasal cannula. General: He is occasionally in distress because of abdominal discomfort. Oral cavity is moist. Lungs: Air entry bilaterally equal. No wheeze or rhonchi. He has bilateral infrascapular crackles. Heart: S1, S2 normal. Irregularly irregular. He has a pansystolic murmur affecting left lower parasternal region suspicious for tricuspid regurgitation. Abdomen: Distended. Soft. He has dullness to percussion. He has significant distention of neck vein. Extremities: He has bilateral lower extremity edema. Bilateral upper extremity edema. He is alert and oriented x3. LABORATORY: WBC of 7.9, hemoglobin 9.3, BUN 26, and creatinine 2.1. His magnesium is 1.6. MICROBIOLOGY: No positive data. Chest x-ray suggests worsening interstitial pulmonary edema. ASSESSMENT AND PLAN: 1. Acute on chronic systolic congestive heart failure with ejection fraction of 10 to 15 percent, likely due to progression of his congestive heart failure. He also has ongoing tobacco use. He previously had history of coronary artery disease requiring CABG around the year 2004, and ischemic cardiomyopathy with NYHA class 4 heart failure. Continue current dose of intravenous Lasix, carvedilol, and digoxin. He has been on intravenous Milrinone and dobutamine without much improvement. Appreciate Cardiology recommendation. 2. Acute kidney injury. His low fractional excretion of sodium on presentation, and low fractional excretion of Urea on Lasix could suggest prerenal etiology. He has severe congestive heart failure and documented history of cirrhosis so cardiorenal and hepatorenal syndrome are likely the precipitating factors. He has been on intravenous albumin. Continue to monitor, and add further doses of albumin. I may consider oral midodrine in the future. Appreciate GI and Nephrology recommendations. 3. History of paroxysmal atrial fibrillation and status post AICD. Continue home medications of carvedilol, digoxin, and apixaban. 4. History of chronic hepatitis C, hepatic cirrhosis, esophageal lysis, and peptic ulcer disease. Continue intravenous Protonix IV every 12 hours. His viral RNA were undetectable in 2014. His right upper quadrant and epigastric tenderness and nausea could be in the setting of congestive liver as well as bowel wall edema. Continue to address underlying heart failure, and treat him symptomatically with some simethicone. 5. Others. Continue to monitor. Patient in PVC. The patient is likely to receive Samsca for hyponatremia. Appreciate Cardiology recommendation. TIME SPENT: 35 minutes have been spent in taking care of this patient. Plan of care extensively discussed with the patient as well as Cardiology team. All of the questions and concerns have been addressed. cc: Arnold Valerio MD
[2020-01-30] MEDS: MAGNESIUM SULFATE 2 GM/S.W.I. 2 GM/50 ML IVPB IV SCH ×2 (11:56→15:56)
--- NOTE | 2020-01-30 16:32 | GASTROENTEROLOGY PROGRESS NOTE ---
DATE: 01/30/2020 SUBJECTIVE: Patient is complaining of right rib pain. He still complains of some nausea but states he has been able to tolerate some liquids. OBJECTIVE: Vital Signs: Temperature 97.4 degrees, pulse 107, respirations 17, blood pressure 103/63. General: Patient is awake and alert in no acute distress. He is complaining of some right upper quadrant pain. LABORATORY: Hematology; WBC 7.91, hemoglobin 9.3, hematocrit 29.5, MCV 99.7, platelets 256,000. Chemistry; sodium 127, potassium 3.7, chloride 93, CO2 22, BUN 36, creatinine 2.1, glucose 104, calcium 7.5. ProBNP 10,474 on 01/29/2020. ASSESSMENT AND PLAN: 1. Acute/chronic congestive heart failure. Continue current management. Following with Cardiology. 2. Acute kidney injury. Patient has been seen by Dr. Rabago. 3. Atrial fibrillation, history of defibrillator/pacemaker. 4. Nausea and vomiting seems to have improved slightly today. He has tolerated some liquids. 5. History of chronic hepatitis-C/cirrhosis. Continue current medications. PLAN: Unfortunately, his symptoms are multifactorial. Recommend current management. We will continue to follow and be available as needed please re-consult if needed. Patient was also seen by Dr. Ballard. Dictated by NILA Schofield for Adrian Ballard MD cc: NILA Macias MD
[2020-01-30] MEDS: ZOFRAN IV PRN (17:55)
[2020-01-30 19:18] LABS: CALCIUM 7.9 mg/dL (8.8-10.2); CREATININE 2.2 mg/dL (0.7-1.2); POTASSIUM 4.1 mmol/L (3.5-5.1)
[2020-01-31] MEDS: SYNTHROID PO SCH (06:10)
[2020-01-31 06:51] LABS: ALBUMIN 2.9 g/dL (3.5-5.0); CALCIUM 7.6 mg/dL (8.8-10.2); CREATININE 2.3 mg/dL (0.7-1.2); PHOSPHORUS 3.6 mg/dL (2.7-4.5); POTASSIUM 3.7 mmol/L (3.5-5.1)
[2020-01-31] MEDS: ALDACTONE PO SCH (08:53)
[2020-01-31] MEDS: COREG PO SCH ×2 (08:53→21:01)
[2020-01-31] MEDS: LASIX IV SCH ×2 (08:53→21:03)
[2020-01-31] MEDS ORDERED: ALBUMIN 25% IV ONE (09:00)
[2020-01-31] MEDS: ELIQUIS PO SCH ×2 (09:10→21:02)
[2020-01-31] MEDS: ASPIRIN PO SCH (09:10)
[2020-01-31] MEDS: PROTONIX IV SCH (09:10)
[2020-01-31] MEDS: CULTURELLE PO SCH (09:10)
[2020-01-31] MEDS: LIPITOR PO SCH (09:10)
[2020-01-31] MEDS: PROAMATINE PO SCH ×3 (09:10→21:02)
[2020-01-31] MEDS: LANOXIN PO SCH (09:10)
[2020-01-31] MEDS: MYLICON PO SCH ×4 (09:10→21:02)
--- NOTE | 2020-01-31 11:45 | PROGRESS NOTE ---
DATE: 01/31/2020 INTERVAL HISTORY: No acute events overnight. He has been hypotensive with systolic blood pressure of 70/40, and I had a discussion with the nursing team about holding his diuretics and antihypertensive medication. In the morning time, he was not symptomatic of hypotension. SUBJECTIVE: Mr. Conroy feels the same. He complains of occasional chest pain on the right lower ribcage site. However, he states this time that taking a deep breath helps him relieve the chest pain. He denies shortness of breath at rest. He denies any cough. He continues to have nausea, but has not had any vomiting. He was able to keep some of his food down. REVIEW OF SYSTEMS: Negative for burning in micturition. Negative for diarrhea. OBJECTIVE: Vital Signs: Currently temperature of 97.5 degrees, pulse 78, respiratory rate of 14, blood pressure of 71/46. He is saturating 99% on 2 liters nasal cannula. General: On physical examination, not in acute distress. Oral cavity is moist. He has decreased air entry with inspiratory crackles, especially right infrascapular region. Cardiovascular: S1 and S2, normal. No murmur, rub, or gallop. He has left-sided chest AICD. He has a pansystolic murmur affecting left lower parasternal region, suspicion of tricuspid regurgitation. Abdomen: Distended, soft. Dullness to percussion. Neck: Significant neck vein distention and positive hepatojugular reflex. Extremities: He has bilateral lower extremity edema. Bilateral upper extremity edema. Neurologic: He is alert and oriented x3. Input and Output: Suggest positive for 80 mL today. LABS: No CBC today. BMP suggestive of BUN of 38, creatinine of 2.3. His albumin is 2.9. No positive microbiological. No new imaging. ASSESSMENT AND PLAN: 1. Acute on chronic systolic congestive heart failure with ejection fraction of 10% to 15%, status post automated implantable cardioverter-defibrillator. This is likely progression of his congestive heart failure due to ischemic cardiomyopathy. He had history of coronary artery disease requiring coronary artery bypass grafting in 2004. I added holding parameters to his current intravenous Lasix and carvedilol dose considering his hypotension. I will continue his digoxin. He is status post intravenous Milrinone on dobutamine drip without much improvement. Appreciate cardiology recommendations. 2. Hypotension. This could be in the setting of severe congestive heart failure and low ejection fraction. His protein energy malnutrition, hypoalbuminemia could also be contributing to low oncotic pressure. Nephrology team has ordered intravenous albumin. I will add oral midodrine with a close eye over his heart rate. I will also follow up with lactate. His blood cultures were unremarkable. I added holding parameters to his antihypertensive medications. 3. Right lower ribcage, upper abdominal quadrant discomfort. Occasionally he mentions pleuritic component to it. However, other times he also mentioned improvement with respiration. I will follow up CT scan of the chest to rule out right lung bronchopneumonia, which could potentially contribute to pleuritic chest pain. Congestive hepatitis from severe combined heart failure could also be a contributing factor. 4. Acute kidney injury, likely a combination of cardiorenal syndrome. He also has a history of cirrhosis. Continue to monitor basic metabolic panel. He does have baseline chronic kidney disease stage 3. 5. History of paroxysmal atrial fibrillation, status post automated implantable cardioverter- defibrillator. Continue digoxin and apixaban. Depending on his kidney function, I may adjust his apixaban dose. 6. History of chronic hepatitis C, hepatic cirrhosis, esophageal lysis, and peptic ulcer disease. No signs of active bleeding. I will change his Protonix to oral every 12 hours and continue simethicone for symptomatic nausea and abdominal distention. 7. Others. He is status post Sammna for hyponatremia. Continue monitor the patient in PVC. His prognosis is guarded. I discussed with him that unfortunately we had exhausted options to help his congestive heart failure and that things did not look good. He understood it. For now, we will get the CT scan of the chest and add midodrine. Monitor him in PVC. TIME SPENT: There were 35 minutes that were spent in this process. cc: Arnold Valerio MD
--- NOTE | 2020-01-31 12:35 | NEPHROLOGY PROGRESS NOTE ---
DATE: 01/31/2020 SUBJECTIVE: He is about the same, lying in bed. Head is elevated at 45 degrees. Worsening swelling, but no shortness of breath at rest. OBJECTIVE: Vital signs: Blood pressure 103/63, heart rate 107, respirations 17, afebrile. General: No acute distress. Chronically ill. Obvious weight loss. HEENT: Conjunctivae are pale. Pupils are equal. Neck: Neck veins are distended. Trachea is midline. Heart: Regular with gallop and murmur. Lungs: Equal, shallow. Few scattered crackles. Abdomen: Distended. Extremities: There is 3+ edema. IMPRESSION: Cardiorenal syndrome. No improvement. BUN and creatinine are roughly stable. Electrolytes and acid-base status are acceptable. His fluid balance is roughly even in the last 48 hours. No changes. Consider hospice. cc: Michael Rabago MD
--- NOTE | 2020-01-31 12:36 | NEPHROLOGY PROGRESS NOTE ---
DATE: 01/31/2020 SUBJECTIVE: He is sitting up on the side of the bed. He complains of swelling of the foreskin. Swelling is worse overall, and shortness of breath is worse. OBJECTIVE: Vital Signs: Blood pressure 73/50, heart rate 86, respirations 16, afebrile. General: Chronically ill. No acute distress. Skin: Warm and dry. Neck: Neck veins are distended. Trachea is midline. Heart: Regular with a gallop and murmur. Lungs: Equal, shallow. Scattered crackles. Abdomen: Distended, soft. Bowel sounds present. Extremities: There is 3+ edema, with foreskin and glans swelling. IMPRESSION: Cardiorenal syndrome. No improvement. Worsening volume status. He is not a candidate for other cardiac interventions. He has failed inotropic therapy. His severe hypotension renders renal replacement therapy unreasonable. Recommend hospice. If I can be of further assistance, please do not hesitate to call. cc: Michael Rabago MD
--- NOTE | 2020-01-31 13:18 | Diag Imaging Result Doc PS360 ---
CT THORAX W/O CONTRAST - 01/31/2020 INDICATION: Eval for pulm edema vs bronchonpenumonia(Rt side) COMPARISON: 01/30/2020, 01/13/2020 FINDINGS: There is severe cardiomegaly. Stable left-sided pacemaker. Stable sternotomy changes. There is hazy pulmonary edema in the lung bases. There is a trace right pleural effusion. There is trace perihepatic ascites. IMPRESSION: Congestive heart failure. This exam was performed using automated exposure control, adjustment of mA or kV according to patient size, and/or use of iterative reconstruction technique Electronically signed by Agustin Langley 01/31/2020 1:16 PM
[2020-01-31] MEDS ORDERED: NS 500 ML IV ONE (16:35)
[2020-01-31] MEDS: PRILOSEC PO SCH (21:02)
[2020-02-01] MEDS: PRILOSEC PO SCH ×2 (06:13→21:24)
[2020-02-01] MEDS: SYNTHROID PO SCH (06:13)
[2020-02-01 06:41] LABS: ALBUMIN 3.2 g/dL (3.5-5.0); CALCIUM 7.2 mg/dL (8.8-10.2); DIGOXIN 0.9 ng/mL (0.9-2.0); PHOSPHORUS 3.3 mg/dL (2.7-4.5); POTASSIUM 3.6 mmol/L (3.5-5.1)
[2020-02-01] MEDS ORDERED: KLOR-CON PO ONE (09:30)
[2020-02-01] MEDS: PROAMATINE PO SCH ×3 (09:33→21:24)
[2020-02-01] MEDS: LIPITOR PO SCH (09:34)
[2020-02-01] MEDS: LANOXIN PO SCH (09:34)
[2020-02-01] MEDS: ASPIRIN PO SCH (09:34)
[2020-02-01] MEDS: MYLICON PO SCH ×4 (09:34→21:24)
[2020-02-01] MEDS: CULTURELLE PO SCH (09:34)
[2020-02-01] MEDS: ALDACTONE PO SCH (09:35)
[2020-02-01] MEDS: ELIQUIS PO SCH ×2 (09:35→21:24)
[2020-02-01] MEDS ORDERED: ALBUMIN 25% IV ONE (10:00)
--- NOTE | 2020-02-01 10:51 | PROGRESS NOTE ---
DATE: 02/01/2020 INTERVAL HISTORY: Mr. Conroy continues to remain hypotensive. He did receive his nighttime Lasix according to report and he made about 1 L of urine. His midodrine dose was increased and he has been tolerating it well. SUBJECTIVE: Mr. Conroy feels tired and sleepy today. He states his chest discomfort is better, though he continues to have intermittent chest discomfort. He denies any shortness of breath. He denies any vomiting. He continues to feel nauseous. VITAL SIGNS: Temperature 96.4 degrees, pulse 71, respiratory rate 17, blood pressure 79/52, saturating 100% on 2 to 3 L nasal cannula. PHYSICAL EXAMINATION: General: Ms Conroy is not in acute distress. HEENT: Oral cavity is moist. Lungs: Air entry bilaterally equal. No wheeze, rhonchi, crackles. Cardiovascular: S1, S2 normal. No murmur, rub, or gallop. Abdomen: Soft. Extremities: He has bilateral lower extremity edema. He has elevated jugular venous distention. Chest: He has a left-sided AICD. Neurologic: He is alert and oriented x3. Input and output suggestive of 1 L of urine output in last 24 hours. LABORATORY DATA: No CBC today. BMP shows a BUN of 42, creatinine 2, sodium 134, chloride 96. MICROBIOLOGY: No positive data. IMAGING: CT scan of the chest yesterday had pulmonary edema and congestive heart failure. ASSESSMENT AND PLAN: 1. Acute on chronic systolic congestive heart failure with an ejection fraction of 10 to 15 percent status post automatic implanted cardioverter/defibrillator. His current presentation is progression of his end-stage congestive heart failure due to ischemic cardiomyopathy. He did have history of coronary artery disease requiring coronary artery bypass grafting in 2004. I will give him intravenous Lasix and continue carvedilol, spironolactone with holding parameters, as well as digoxin. His clinical status and hypotension did not really improve after intravenous Milrinone or dobutamine drip. 2. Hypotension, likely in the setting of severe systolic congestive heart failure. I will continue to give him intravenous albumin for protein energy malnutrition and hypoalbuminemia. Continue oral midodrine. His lactate has been within acceptable range. 3. Right lower ribcage/upper abdominal discomfort, likely due to hepatic congestion due to congestive heart failure. No evidence of pneumonia. 4. Acute kidney injury, likely due to cardiorenal syndrome type 1. 5. History of paroxysmal atrial fibrillation status post automatic implanted cardioverter/defibrillator. Continue digoxin, apixaban, and carvedilol with holding parameters. 6. History of chronic hepatitis C, hepatic cirrhosis and esophageal varices with peptic ulcer disease without any signs of active bleeding. Continue oral proton pump inhibitors and simethicone. 7. Others. He is status post Sammta for hyponatremia with improvement in sodium level. I will monitor him in PVC. DISPOSITION: Mr. Conroy seems to have end-stage congestive heart failure. Unfortunately, his clinical status did not respond with intravenous pressor medication and he consistently remains hypotensive, though his lactate has been normal. I discussed with him about his congestive heart failure and poor response to multiple medical therapies so far. I discussed with him if he would want symptomatic treatment for his congestive heart failure with hospice care and he seems to be amenable to that discussion. I will again involve Palliative Care and start hospice care discussion. Until then, I will keep him on current therapy. Plan of care discussed with him. His questions have been answered. ADDENDUM: Hospice team has evaluated him. The plan is potential discharge tomorrow. cc: Arnold Valerio MD [facility]
[2020-02-01] MEDS: COREG PO SCH ×2 (14:51→21:23)
[2020-02-01] MEDS: LASIX IV SCH (14:51)
[2020-02-01] MEDS: NORCO-10 PO PRN (21:50)
[2020-02-02] MEDS: LASIX IV SCH (05:48)
[2020-02-02] MEDS: PRILOSEC PO SCH ×2 (05:48→06:18)
[2020-02-02] MEDS: SYNTHROID PO SCH ×2 (05:49→06:18)
[2020-02-02 06:15] LABS: BASO# 0.05 X1000 (0.0-0.2); BASO% 0.5 % (0.0-0.8); EOS# 0.03 X1000 (0.0-0.7); EOS% 0.3 % (0.0-10.0); HEMATOCRIT 30.8 % (42.0-52.0); HEMOGLOBIN 9.9 g/dL (14.0-18.0); IMM GRAN# 0.07 X1000 (0.0-0.04); IMM GRAN% 0.7 % (0.0-0.5); LYMPH# 1.25 X1000 (1.2-3.4); LYMPH% 13.3 % (20.5-51.1); MCH 31.9 PG (27-31); MCHC 32.1 g/dL (33-37); MCV 99.4 FL (81-99); MONO# 1.43 X1000 (0.11-0.59); MONO% 15.2 % (1.7-9.3); MPV 9.5 FL (7.4-10.4); PLT 323 X1000 (130-400); RDW 14.5 % (11.5-14.5); WBC 9.43 X1000 (4.8-10.8)
[2020-02-02 06:34] LABS: ALBUMIN 3.1 g/dL (3.5-5.0); CALCIUM 7.3 mg/dL (8.8-10.2); CREATININE 2.2 mg/dL (0.7-1.2); PHOSPHORUS 3.4 mg/dL (2.7-4.5); POTASSIUM 4.1 mmol/L (3.5-5.1)
[2020-02-02] MEDS: COREG PO SCH (08:10)
[2020-02-02] MEDS ORDERED: ELIQUIS PO SCH (09:00)
[2020-02-02] MEDS: ZOFRAN IV PRN (09:14)
--- NOTE | 2020-02-02 10:55 | DISCHARGE SUMMARY ---
ADMISSION DATE: 01/13/2020 DISCHARGE DATE: 02/02/2020 PRIMARY CARE PHYSICIAN: Dr. Brissa Lemons MASS SPECTROMETRY SPECIALIST: Dr. Deven Schwarz CONSULTATIONS: Cardiology, Nephrology, and GI. ADMISSION DIAGNOSES: 1. Congestive heart failure with last known ejection fraction of 15% in 2018. 2. Ischemic cardiomyopathy. 3. Coronary artery disease. 4. Paroxysmal atrial fibrillation and atrial flutter. 5. Chronic hypotension. 6. Hyperlipidemia. 7. Hepatitis C with cirrhosis of the liver. 8. Cardiorenal syndrome. 9. Chronic kidney disease. 10. Chronic obstructive pulmonary disease. 11. Nicotine dependency. 12. Hypothyroidism. 13. WAS noted to be on hospice back in 2017, but was discharged due to improvement. DISCHARGE DIAGNOSES: 1. Acute on chronic systolic congestive heart failure with an ejection fraction of 10% to 15%, status post automatic implanted cardioverter defibrillator in end-stage congestive heart failure due to ischemic cardiomyopathy. 2. Hypotension, likely in the setting of severe systolic congestive heart failure. 3. Acute kidney injury likely secondary to cardiorenal syndrome type 1. 4. History of paroxysmal atrial fibrillation, status post automatic implanted cardioverter/defibrillator. 5. History of chronic hepatitis C, hepatic cirrhosis and esophageal varices with peptic ulcer disease with no signs of bleeding. 6. Hyponatremia, improved status post Samsca. Please note, patient is being discharged home with hospice today. SUMMARY OF FINDINGS: This is a 59-year-old male who was transferred from [facility] due to continued lower extremity edema, pneumonia, and also noted they were unable to continue diuresing him secondary to having no ICU beds, so he was transferred here for higher level of care with Cardiology consultation. We did an echocardiogram on 01/13/2020 that showed an ejection fraction of 10% to 15% with severely dilated LV with severely reduced systolic function. He was started on Entresto. Chest x-ray on 01/14/2020, showed cardiomegaly and mild pulmonary edema, improved atelectasis versus pneumonia in the right upper lobe. Nephrology was consulted on 01/29/2020, due to his acute kidney injury and cardiorenal syndrome complicated by hypoalbuminemia and poor cardiac function as well as severe pulmonary hypertension. He was started on albumin and Lasix. He did not have any proteinuria. He had a fluid restriction and salt restriction with overall poor prognosis. GI was also consulted on 01/29/2020, due to abdominal pain and some nausea, vomiting. There was not much GI could do except offer supportive symptomatic treatment and care. Continue with his current plan of treatment. The family has decided at this time along with hospice evaluation that he will go home on hospice. All discharge instructions were reviewed with the patient and he verbalized understanding. DISCHARGE MEDICATIONS: Will include Eliquis 5 mg p.o. daily, aspirin 81 mg p.o. daily, atorvastatin 10 mg p.o. daily, Coreg 3.125 mg p.o. b.i.d., digoxin 125 mcg p.o. daily, Synthroid 50 mcg p.o. daily, amiodarone 400 mg p.o. daily, colchicine 0.6 mg p.o. daily, cyclobenzaprine 10 mg p.o. t.i.d., Lasix 40 mg p.o. b.i.d., hydralazine 10 mg p.o. t.i.d., [place] 7.5 one p.o. q.4-6 hours p.r.n. TIME SPENT: 35 minute discharge for Chucho Conroy. Dictated by NILA Monet for Adrian Branham MD Addendum: Patient seen and examined by myself. Agree with NILA note. It reflects my assessment and plan. Patient is being discharged in stable condition to home with hospice. cc: NILA Monet MD Faye Wilson, MD [facility] [place]
[2020-02-02] MEDS: PROAMATINE PO SCH (11:18)
[2020-02-02] MEDS: MYLICON PO SCH ×2 (11:18→13:20)
[2020-02-02] MEDS: LIPITOR PO SCH (11:18)
[2020-02-02] MEDS: LANOXIN PO SCH (11:18)
[2020-02-02] MEDS: ALDACTONE PO SCH (11:19)
[2020-02-02] MEDS: ASPIRIN PO SCH (11:19)
[2020-02-02] MEDS: CULTURELLE PO SCH (11:19)
[2020-02-02 11:32] VITALS: BP 85/56
== END 2020-02-02 13:40 | disposition hospice, home (50) | DRG 291 ==
LOC: SUATTDRO 13:28 → DIRADM 13:28 → ICU 15:20 → 2N 01-23 14:43
PROVIDERS: ATTEND Internal Medicine